=== PATIENT | female | born 1940 | race Caucasian/White ===

== ENCOUNTER 2017-04-05 07:47 | Emergency (ER) | payer MEDICARE ==
[~2017-04-05] VITALS: Ht 167.6 cm; Wt 109.3 kg
[~2017-04-05 07:47] MED LIST: ALLOPURINOL100 MG PO; BACTRIM DS TAB1 EACH PO; CILOXAN5 ML OS; COLACE100 M1 PO; COZAAR100 MG PO; ESCITALOPRAM OX10 MG PO; FAMOTIDINE20 MG PO; FLUCONAZOLE100 MG PO; FUROSEMIDE40 MG PO; HYDROCHLOROTHIA25 MG PO; JANTOVEN3 MG PO; LEVAQUIN500 MG PO; LEXAPRO10 MG PO; LOSARTAN POTAS100 MG PO; METOPROLOL SUC100 MG PO; METOPROLOL SUCC50 MG PO; NORVASC5 MG PO; PEPCID20 MG PO; POTASSIUM CHLO20 ME1 PO; PREDNISOLONE ACE5 ML OS; PREDNISONE10 MG PO; PREDNISONE20 MG PO; SENOKOT8.6 MG PO; SEREVENT DISKU50 MCG PO; SIMVASTATIN20 MG PO; TESSALON PERLE100 MG PO; VENTOLIN HFA18 GM PO; WARFARIN SODIU2.5 MG PO
[2017-04-05] MEDS ORDERED: KETOROLAC TROMETHAMINE 10 MG TAB PO ONE (08:15)
--- NOTE | 2017-04-05 09:12 | Diagnostic Imaging Report ---
PROCEDURE:HIP RIGHT 2-3 VW (+/- PELVIS) COMPARISON:Pelvis one view 10/26/2016. INDICATIONS:FALL, HIP PAIN FINDINGS: Normal mineralization. No acute fracture or dislocation. Joint spaces are within normal limits. Postoperative changes of open reduction and internal fixation of a right femoral neck fracture with intramedullary mychal and single cortical screw. No qagan tayagungin bone or hardware fracture is identified. Minimal heterotopic ossification. Degenerative changes of the lumbar spine. CONCLUSION: No acute fracture or dislocation. Postoperative changes. Dictated by: Andrey Sahu M.D. on 04/05/2017 at 9:21 Electronically approved by: Andrey Sahu M.D. on 04/05/2017 at 9:21
--- NOTE | 2017-04-05 09:16 | Diagnostic Imaging Report ---
PROCEDURE:X-RAY RIGHT WRIST, COMPLETE COMPARISON:None. INDICATIONS:FALL, WRIST BRUISING FINDINGS: There are no fractures, dislocations, lytic or blastic lesions. The bones are well-mineralized. The soft-tissues are unremarkable. CONCLUSION: No acute radiographic abnormality. Dictated by: Andrey Sahu M.D. on 04/05/2017 at 9:25 Electronically approved by: Andrey Sahu M.D. on 04/05/2017 at 9:25
[2017-04-05] MEDS ORDERED: DEXAMETHASONE 4 MG TAB PO ONE (12:00)
== END 2017-04-05 09:56 | disposition home or self-care (01) ==
LOC: ER 07:47
DX: S70.01XA Contusion of right hip, initial encounter (principal); M25.531 Pain in right wrist; W01.0XXA Fall on same level from slipping, tripping and stumbling without subsequent striking against object, initial encounter; Y92.008 Other place in unspecified non-institutional (private) residence as the place of occurrence of the external cause; I10 Essential (primary) hypertension; E11.9 Type 2 diabetes mellitus without complications; I50.9 Heart failure, unspecified; I48.91 Unspecified atrial fibrillation
CPT/HCPCS: 99283

== ENCOUNTER 2017-06-13 11:50 | Emergency (ER) | payer MEDICARE ==
[~2017-06-13] VITALS: Ht 170.2 cm; Wt 106.6 kg
--- OUTSIDE RECORDS SUMMARY | 2017-06-13 11:54 | XMS REPORT ---
Author Author [facility] Address Unknown Phone Unavailable Care Team Providers Care Veneer Marker Name Role Phone HEBERT MAGDALENO Unavailable Unavailable VICTORIANO PHILIPPE Unavailable Unavailable Problems This patient has no known problems. Allergies, Adverse Reactions, Alerts This patient has no known allergies or adverse reactions. Medications This patient has no known medications. Results Test Description Test Time Test Comments Text Results Atomic Results Result Comments WRIST COMPLETE RIGHT [place] [address] Patient Name: KELLEY GONZALEZ MR #: [id number] : 1940 Age/Sex: 76/F Req #: [id number] [facility] Physician: Ordered by: HEBERT MAGDALENO MD Report #: [id number] Location: ER Room/Bed: Procedure: [id number] DX/WRIST COMPLETE RIGHT Exam Date: 04/05/17 Exam Time: 0820 REPORT STATUS: Signed PROCEDURE: X-RAY RIGHT WRIST, COMPLETE COMPARISON: None. INDICATIONS: FALL, WRIST BRUISING FINDINGS: There are no fractures, dislocations, lytic or blastic lesions. The bones are well-mineralized. The soft-tissues are unremarkable. CONCLUSION: No acute radiographic abnormality. Dictated by: Denae Umana M.D. on 04/05/2017 at 9:25 Electronically approved by: Denae Umana M.D. on 04/05/2017 at 9:25 Dictated By : DENAE UMANA MD 4 Transcribed By: GURPREET on 04/05/17924 COPY TO: HEBERT MAGDALENO MD HIP RIGHT 2-3 VW (+/- PELVIS) [place] [address] Patient Name: KELLEY GONZALEZ MR #: [id number] : 1940 Age/Sex: 76/F Req #: [id number] Adm Physician: Ordered by: HEBERT MAGDALENO MD Report #: [id number] Location: ER Room/Bed: Procedure: [id number] DX/HIP RIGHT 2-3 VW (+/- PELVIS) Exam Date: Exam Time: REPORT STATUS: Signed PROCEDURE: HIP RIGHT 2-3 VW (+/- PELVIS) COMPARISON: Pelvis one view 10/26/2016. INDICATIONS: FALL, HIP PAIN FINDINGS: Normal mineralization. No acute fracture or dislocation. Joint spaces are within normal limits. Postoperative changes of open reduction and internal fixation of a right femoral neck fracture with intramedullary mychal and single cortical screw. No kl[place] kaah bone or hardware fracture is identified. Minimal heterotopic ossification. Degenerative changes of the lumbar spine. CONCLUSION: No acute fracture or dislocation. Postoperative changes. Dictated by: Denae Umana M.D. on 04/05/2017 at 9:21 Electronically approved by: Denae Umana M.D. on 04/05/2017 at 9:21 Dictated By: DENAE UMANA MD 0 Transcribed By: GURPREET on 04/05/17920 COPY TO: HEBERT MAGDALENO MD HIP RIGHT 2-3 VW (+/- PELVIS) [place] [id number] [place] [address] Patient Name: KELLEY GONZALEZ MR #: [id number] : 1940 Age/Sex: 76/F Req #: [id number] Adm Physician: VICTORIANO PHILIPPE MD Ordered by: TERE ALVAREZ MD Report #: [id number] Location: MED/SURG Room/Bed: [facility] Procedure: [id number] DX/HIP RIGHT 2-3 VW (+/- PELVIS ) Exam Date: Exam Time: REPORT STATUS: Signed PROCEDURE: X-RAY PELVIS, AP VIEW COMPARISON: [facility], DX, HIP RIGHT 2-3 VW (+/- PELVIS), 10/24/2016, 0:12. INDICATIONS: Hip fracture, right FINDINGS: See impression. Impression: 1. Status post ORIF of previously visualized right femoral intertrochanteric fracture, with placement of intramedullary mychal and screw. Hardware is intact, without evidence of loosening or failure. Satisfactory alignment on this single AP view. 2. Mild degenerative changes in bilateral hip joints. 3. Soft tissues are grossly unremarkable. Maureen Kurtz M.D. Dictated by: Maureen Kurtz M.D. on 10/26/2016 at 18:09 Electronically approved by: Maureen Kurtz M.D. on 2016 at 18:09 Dictated By: MAUREEN KURTZ MD 08 Transcribed By: GURPREET on 1808 COPY TO: TERE ALVAREZ MD PELVIS AP 1-[address], [place] [address] Patient Name: KELLEY GONZALEZ MR #: [id number] : 1940 Age/Sex: 76/F Req #: [id number] [facility] Physician: VICTORIANO PHILIPPE MD Ordered by: TERE ALVAREZ MD Report #: [id number] Location: MED/SURG Room/Bed: [facility] Procedure: [id number] DX/PELVIS AP 1-2 VIEWS Exam Date: 10/26/16 Exam Time: 1415 REPORT STATUS: Signed PROCEDURE: X-RAY PELVIS, AP VIEW COMPARISON: [facility], DX, HIP RIGHT 2-3 VW (+/- PELVIS), 10/24/2016, 0:12. INDICATIONS: Hip fracture, right FINDINGS: See impression. Impression: 1. Status post ORIF of previously visualized right femoral intertrochanteric fracture, with placement of intramedullary mychal and screw. Hardware is intact, without evidence of loosening or failure. Satisfactory alignment on this single AP view. 2. Mild degenerative changes in bilateral hip joints. 3. Soft tissues are grossly unremarkable. Maureen Kurtz M.D. Dictated by: Maureen Kurtz M.D. on 10/26/2016 at 18:09 Electronically approved by: Maureen Kurtz M.D. on 2016 at 18:09 Dictated By: MAUREEN KURTZ MD 08 Transcribed By: GURPREET on 1808 COPY TO: TERE ALVAREZ MD
[2017-06-13] MEDS ORDERED: ACETAMINOPHEN/CODEINE 300MG - 30MG TAB PO ONE ×2 (12:15→13:45)
--- NOTE | 2017-06-13 12:43 | Diagnostic Imaging Report ---
PROCEDURE:X-RAY RIGHT WRIST, COMPLETE COMPARISON:Right wrist radiograph 04/05/2017 INDICATIONS:FALL FINDINGS: Mildly displaced and comminuted fracture of the distal radius with intra-articular extension. Again noted small bony fragment distal to the ulna which may represent an old avulsion. Advanced degenerative changes of the first carpometacarpal joint. There are no dislocations, lytic or blastic lesions. The bones are well-mineralized. Associated soft tissue swelling. CONCLUSION: Acute mildly displaced and comminuted fracture of the distal radius. Dictated by: Edilberto Santiago M.D. on 06/13/2017 at 12:43 Electronically approved by: Edilberto Santiago M.D. on 06/13/2017 at 12:43
== END 2017-06-13 14:00 | disposition home or self-care (01) ==
LOC: ER 11:54
DX: S52.571A Other intraarticular fracture of lower end of right radius, initial encounter for closed fracture (principal); W01.0XXA Fall on same level from slipping, tripping and stumbling without subsequent striking against object, initial encounter; Y93.01 Activity, walking, marching and hiking; Y92.015 Private garage of single-family (private) house as the place of occurrence of the external cause; I10 Essential (primary) hypertension; E78.5 Hyperlipidemia, unspecified; F41.9 Anxiety disorder, unspecified; Z85.118 Personal history of other malignant neoplasm of bronchus and lung; I50.9 Heart failure, unspecified
CPT/HCPCS: 99284

== ENCOUNTER 2018-02-06 12:30 | Emergency (ER) | payer MEDICARE, OTHER ==
[~2018-02-06] VITALS: Ht 170.2 cm; Wt 106.6 kg
--- OUTSIDE RECORDS SUMMARY | 2018-02-06 12:34 | XMS REPORT ---
Author Author Jose M Moore Organization [employer] Address Unknown Phone Unavailable Care Team Providers Care Oncology Coordinator Name Role Phone Jose M Moore CP Unavailable Allergies No Known Allergies Problems Problem Type Condition Code Onset Dates Condition Status Problem 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 Active Problem Low back pain M54.5 Active Problem CABRERA (dyspnea on exertion) R06.09 Active Problem Primary osteoarthritis of both knees M17.0 Active Problem Abnormal EKG R94.31 Active Problem Patient unable to exercise Z78.9 Active Assessment Chronic diastolic CHF (congestive heart failure), NYHA class 3 I50.32 Active Problem Angina pectoris I20.9 Active Problem Lung nodule R91.1 Active Problem Other chronic pain G89.29 Active Problem Chronic diastolic CHF (congestive heart failure), NYHA class 3 I50.32 Active Problem Paroxysmal atrial fibrillation I48.0 Active Problem Type 2 diabetes mellitus without complications E11.9 Active Problem HTN (hypertension), benign I10 Active Problem Atrial fibrillation I48.91 Active Problem Venous insufficiency I87.2 Active Problem 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.893 Active Problem Chronic idiopathic gout involving toe, 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
--- OUTSIDE RECORDS SUMMARY | 2018-02-06 12:34 | XMS REPORT ---
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 Problem 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.893 Active Problem Low back pain M54.5 Active Problem Lung nodule R91.1 Active Problem Other chronic pain G89.29 Active Problem Pure hypercholesterolemia E78.00 Active Problem 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 M05.741 Active Problem CABRERA (dyspnea on exertion) R06.09 Active Problem 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 Active Assessment Atrial fibrillation I48.91 Active Problem Type 2 diabetes mellitus without complications E11.9 Active Problem Abnormal EKG R94.31 Active Problem 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
--- OUTSIDE RECORDS SUMMARY | 2018-02-06 12:34 | XMS REPORT ---
Author Author Jose M Moore Organization [employer] Address Unknown Phone Unavailable Care Team Providers Care Grader Operator Name Role Phone Jose M Moore CP Unavailable Allergies, Adverse Reactions, Alerts Substance Reaction Event Type Clindamycin 300 mg 10d Hives Drug Allergy Morphine Sulfate Hyperactive Drug Allergy Problems Problem Type Condition Code Onset Dates Condition Status Assessment Type 2 diabetes mellitus without complications E11.9 Active Assessment Atrial fibrillation I48.91 Active Assessment HTN (hypertension), benign I10 Active Problem Venous insufficiency I87.2 Active Problem HTN (hypertension), benign I10 Active Problem Atrial fibrillation I48.91 Active Problem 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 Problem snf (current) use of insulin Z79.4 Active Problem Abnormal EKG R94.31 Active Problem Type 2 diabetes mellitus without complications E11.9 Active Assessment snf (current) use of insulin Z79.4 Active Assessment 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 Assessment 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 Active Assessment Abnormal EKG R94.31 Active Medications Medication Code System Code Instructions Start Date End Date Status Dosage Amlodipine Besylate [facility] [address]-52 5 MG PO daily Active 1 tablet Allopurinol [facility] [address]-14 100 mg Orally Twice a day Active 1 tablet Metformin HCl [facility] [address]-91 500 mg Orally once a day Active 1/2 tablet Albuterol Sulfate [facility] [address]-75 Inhalation as needed (prn) Active 3 ml Warfarin Sodium [facility] [address]-24 2.5 MG Orally daily Active 1 tablet Potassium Chloride [place] ER [facility] [address]-23 10 MEQ Orally Twice a day Active 2 tablets Escitalopram Oxalate [facility] [address]-39 10 mg Orally Once a day Active 1 tablet Simvastatin [facility] [address]-71 20 mg Orally Once a day Active 1 tablet in the evening Losartan Potassium-HCTZ [facility] [address]-78 100-25 MG Orally Once a day Active 1 tablet Metoprolol Succinate ER [facility] 25080389554 50MG Orally Twice a day Active 1 tablet Furosemide [facility] [address]-02 20 mg Orally Once a day Active 1 tablet Vital Signs Date/Time: June 07, 2015 BMI 40.09 Index Weight 256 lbs Height 67 in Temperature 96.9 F Cardiac Monitoring Heart Rate 95 /min Blood Pressure Diastolic 86 mm Hg Blood Pressure Systolic 110 mm Hg Results No Known Results Summary Purpose [employer] Submission
--- OUTSIDE RECORDS SUMMARY | 2018-02-06 12:34 | XMS REPORT ---
Author Author Jose M Moore Organization [employer] Address Unknown Phone Unavailable Care Team Providers Care City Plant Supervisor Name Role Phone Jose M Moore CP Unavailable Allergies, Adverse Reactions, Alerts Substance Reaction Event Type Clindamycin 300 mg 10d Hives Drug Allergy Morphine Sulfate Hyperactive Drug Allergy Problems Problem Type Condition Code Onset Dates Condition Status Problem HTN (hypertension), benign I10 Active Assessment Low back pain M54.5 Active Problem Venous insufficiency I87.2 Active Assessment Pure hypercholesterolemia E78.00 Active Problem Atrial fibrillation I48.91 Active Problem Chronic idiopathic gout involving toe, 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 Problem 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.893 Active Problem Low back pain M54.5 Active Problem Lung nodule R91.1 Active Assessment Type 2 diabetes mellitus without complications E11.9 Active Assessment Lung nodule R91.1 Active Problem Other chronic pain G89.29 Active Assessment Abnormal EKG R94.31 Active Problem Pure hypercholesterolemia E78.00 Active Problem 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 M05.741 Active Problem CABRERA (dyspnea on exertion) R06.09 Active Problem 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 Active Assessment HTN (hypertension), benign I10 Active Assessment Atrial fibrillation I48.91 Active Assessment 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 Active Assessment CABRERA (dyspnea on exertion) R06.09 Active Problem Type 2 diabetes mellitus without complications E11.9 Active Problem Abnormal EKG R94.31 Active Problem 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 [address]-49 2.5 MG Orally daily Active [address] [facility] [address]-78 2.5 MG Orally Weekly Active 4 tablets Metoprolol Succinate ER [facility] 84723751944 50MG Orally Twice a day Active [address] [facility] [address]-11 100 mg Orally Once a day Active 1 tablet Escitalopram Oxalate [facility] [address]-25 10 mg Orally Once a day Active 1 tablet Albuterol Sulfate [facility] [address]-85 Inhalation as needed (prn) Active [address] [facility] [address]-23 20 mg Orally Once a day Active 1 tablet in the evening Furosemide [facility] [address]-27 40 MG Orally Once a day Active 1 tablet Potassium Chloride [place] ER [facility] [address]-11 10 MEQ Orally Twice a day Active 2 tablets Metformin HCl [facility] [address]-15 500 mg Orally once a day Active 1/[address] [facility] [address]-52 5 MG Orally QOD Active 1 tablet Losartan Potassium-HCTZ [facility] [address]-03 100-25 MG Orally Once a day Active 1/2 half tablet Vital Signs Date/Time: Mar 27, 2016 BMI 39.15 Index Weight 250 lbs Height 67 in Temperature 97.2 F Cardiac Monitoring Heart Rate 80 /min Blood Pressure Diastolic 72 mm Hg Blood Pressure Systolic 122 mm Hg Results No Known Results Summary Purpose [employer] Submission
--- OUTSIDE RECORDS SUMMARY | 2018-02-06 12:34 | XMS REPORT ---
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 Assessment 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 Active Assessment Abnormal EKG R94.31 Active Medications Medication Code System Code Instructions Start Date End Date Status Dosage Amlodipine Besylate [facility] [address]-46 5 MG PO daily Active 1 tablet Warfarin Sodium [facility] [address]-43 2.5 MG Orally daily Active 1 tablet Furosemide [facility] [address]-29 40 MG Orally daily Active 1 tablet Metoprolol Succinate ER [facility] 63795436212 50MG Orally Twice a day Active 1 tablet Escitalopram Oxalate [facility] [address]-23 10 mg Orally Once a day Active 1 tablet Simvastatin [facility] [address]-68 20 mg Orally Once a day Active 1 tablet in the evening Allopurinol [facility] [address]-53 100 mg Orally Once a day Active 1 tablet Lexapro [facility] [address]-38 5 MG/5ML Orally Once a day Active 10 ml Potassium Chloride [place] ER [facility] [address]-96 10 MEQ Orally Twice a day Active 2 tablets Losartan Potassium-HCTZ [facility] [address]-26 100-25 MG Orally Once a day Active 1 tablet Albuterol Sulfate [facility] [address]-15 Inhalation as needed (prn) Active 3 ml Metformin HCl [facility] [address]-04 500 mg Orally once a day Active 1/2 tablet Vital Signs Date/Time: August 09, 2015 BMI 40.09 Index Weight 256 lbs Height 67 in Temperature 97.6 F Cardiac Monitoring Heart Rate 95 /min Blood Pressure Diastolic 70 mm Hg Blood Pressure Systolic 118 mm Hg Results No Known Results Summary Purpose [employer] Submission
--- OUTSIDE RECORDS SUMMARY | 2018-02-06 12:34 | XMS REPORT | Continuity of Care Document ---
Author Author [facility] Interface Address Unknown Phone Unavailable Problems Problem Status Onset Date Classification Date Reported Comments Source Varicose veins of lower extremities with other complications Active Problem 01/10/2018 Jose M Moore Lung nodule Active Problem 01/10/2018 Jose M Moore CABRERA Active Problem 01/10/2018 Jose M Moore Patient unable to exercise Active Problem 01/10/2018 Jose M Moore custodial use of insulin Active Problem 01/10/2018 Jose M Moore Chronic diastolic CHF , NYHA class 3 Active Diagnosis 01/10/2018 Jose M Moore Pure hypercholesterolemia Active Problem 01/10/2018 Jose M Moore Primary osteoarthritis of both knees Active Problem 01/10/2018 Jose M Moore Other chronic pain Active Problem 01/10/2018 Jose M Moore Low back pain Active Problem 01/10/2018 Jose M Moore Angina pectoris Active Problem 01/10/2018 Jose M Moore Paroxysmal atrial fibrillation Active Problem 01/10/2018 Jose M Moore Abnormal EKG Active Problem 01/10/2018 Jose M Moore HTN , benign Active Problem 01/10/2018 Jose M Moore Other specified arthropathy of pelvic region Active Problem 01/10/2018 Jose M Moore Type 2 diabetes mellitus without complications Active Problem 01/10/2018 Jose M Moore Varicose veins of bilateral lower extremities with other complications Active Problem 01/10/2018 Jose M Moore Chronic idiopathic gout involving toe, unspecified laterality Active Problem 01/10/2018 Jose M Moore Venous insufficiency Active Problem 01/10/2018 Jose M Moore 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 Active Problem 01/10/2018 Jose M Moore Atrial fibrillation Active Problem 01/10/2018 Jose M Moore Body Mass Index 40.0-44.9, adult Active Problem 03/04/2014 Jose M Moore Diabetes mellitus without mention of complication, type II or unspecified type, not stated as uncontrolled Active Problem 03/04/2014 Jose M Moore Unspecified arthropathy, pelvic region and thigh Active Problem 03/04/2014 Jose M Moore Sinus Bradycardia Active Problem 03/04/2014 Jose M Moore Aortic valve disorders Active Problem 03/04/2014 Jose M Moore Abnormal EKG Active Problem 03/04/2014 Jose M Moore Atrial fibrillation Active Problem 03/04/2014 Jose M Moore HTN, Benign Active Problem 03/04/2014 Jose M Moore Medications Medication Details Route Status Patient Instructions Ordering Provider Order Date Source Potassium Chloride [place] ER TAKE 2 TABLETS TWICE DAILY by mouth Active 10 MEQ by mouth Twice a day [facility] 01/23/2018 Jose M Moore Warfarin Sodium 1 tablet Orally Active 2.5 MG Orally daily [facility] 04/29/2016 Jose M Moore Potassium Chloride 1 capsule Orally Active 10 MEQ Orally TID [facility] 04/01/2014 Jose M Mooer Potassium Chloride 2 capsule Orally Active 10 MEQ Orally Twice a day [facility] 03/09/2014 Jose M Moore Simvastatin 1 tablet in the evening Orally Active 20 mg Orally Once a day Rykatarzyna Moore Furosemide TAKE 1 TABLET EVERY DAY by mouth Active 40 mg by mouth twice a day (bid) Rykatarzyna Moore Potassium Chloride [place] ER TAKE 2 TABLETS TWICE DAILY NA Active 10 MEQ Rykatarzyna Moore Amlodipine Besylate 1 tablet PO Active 5 [facility] Allopurinol 1 tablet Orally Active 100 mg Orally Once a day Rykatarzyna Moore Metformin HCl 1/2 tablet Orally Active 500 mg Orally once a day Rykatarzyna Moore Albuterol Sulfate 3 ml Inhalation Active Inhalation as needed (prn) Rykatarzyna Moore Warfarin Sodium 1 tablet Orally Active 2.5 MG Orally daily [facility] Jose M Moore Potassium Chloride [place] ER 2 tablets Orally Active 10 MEQ Orally Twice a day Rykatarzyna Moore Escitalopram Oxalate 1 tablet Orally Active 10 mg Orally Once a day Rykatarzyna Moore Losartan Potassium-HCTZ 1/2 half tablet Orally Active 100-25 MG Orally Once a day Rykatarzyna Moore Metoprolol Succinate ER 1 tablet Orally Active 50MG Orally Twice a day Ry Milly O Oscar Furosemide 1 tablet Orally Active 20 MG Orally Once a day Ry Milly O Oscar PredniSONE 1 tablet Orally Active 5 MG Orally QOD Ry Milly O Oscar Furosemide 1 tablet Orally Active 40 MG Orally Once a day Ry Milly O Oscar Lexapro 10 ml Orally Active 5 MG/5ML Orally Once a day Ry Milly O Oscar Metoprolol Succinate ER 1 tablet PO Active 100 MG PO daily Ry Milly O Oscar Allopurinol 1 tablet Orally Active 100 mg Orally Once a day Ry Milly O Oscar Methotrexate 4 tablets Orally Active 2.5 MG Orally Weekly Ry Milly O Oscar Warfarin Sodium 1 tablet Orally Active 2.5 MG Orally daily Ry Milly O Oscar Albuterol Sulfate 3 ml Inhalation Active Inhalation as needed (prn[facility] Metformin HCl 1/2 tablet Orally Active 500 mg Orally once a day Ry Milly O Oscar Pepcid 1 tablet at bedtime Orally Active 20 MG Orally Once a day Ry Milly O Oscar Escitalopram Oxalate 1 tablet Orally Active 10 mg Orally Once a day yR Milly Oscar PredniSONE 1 tablet Orally Active 5 MG Orally QOD Ry Milly O Oscar Simvastatin 1 tablet in the evening Orally Active 20 mg Orally Once a day Ry Milly O Oscar Pepcid 1 tablet at bedtime Orally Active 20 MG Orally Once a day [facility] Milly O Oscar Fluconazole 1 tablet Orally Active 100 MG Orally daily Ry Milly O Oscar Ciprofloxacin 5 ml Orally Active 500 MG/5ML (10%) Orally Twice a day Ry Milly O Oscar Methotrexate 4 tablets Orally Active 2.5 MG Orally Weekly Ry Milly O Oscar Metoprolol Succinate ER 1 tablet PO Active 100 MG PO daily Ry Milly O Oscar Warfarin Sodium 1 tablet Orally Active 2.5MG Orally daily Ry Milly O Oscar Potassium Chloride 1 capsule Orally Active 10 Orally TID [facility] Milly O Rykatarzyna Potassium Chloride [place] ER 2 tablets Orally Active 10 MEQ Orally Twice a day [facility] Brisa Oscar Losartan Potassium-HCTZ 1 tablet Orally Active 100-25 MG Orally Once a day [facility] Brisa Oscar Metoprolol Succinate ER 1 tablet Orally Active 50 MG Orally Twice a day [facility] Brisa Oscar Metoprolol Succinate as directed Orally Active 50 MG Orally Once PM [facility] Lede[facility] Oscar Coumadin 1 tablet Orally Active 3 MG Orally daily [facility] Brisa Oscar Metoprolol Succinate ER 1/2 tablet Orally Active 50 MG Orally Once AM [facility] Brisa Razaelvira Potassium Chloride 1 capsule Orally Active 10 MEQ Orally Four times a day [facility] Brisa Razaelvira Toprol XL 1 tablet Orally Active 50 mg Orally 25mg in AM, 50 mg in PM [facility] Brisa Oscar Warfarin Sodium 1 tablet Orally Active 3 MG Orally Once PM [facility] Brisa Oscar Allergies, Adverse Reactions, Alerts Substance Category Reaction Severity Reaction type Status Date Reported Comments Source Clindamycin 300 mg 10d Adverse Reaction Hives Adverse Reaction Active 12/04/2016 [facility] Brisa Moore Morphine Sulfate Adverse Reaction Hyperactive Adverse Reaction Active 12/04/2016 [facility] Brisa Moore Immunizations Immunization Date Given Site Status Last Updated Comments Source Results Order Name Results Value Reference Range Date Interpretation Comments Source Vital Signs Vital Sign Value Date Comments Source Weight 232 12/04/2016 Jose M Jaimekatarzyna Height 67 12/04/2016 Jose M Moore Temperature Oral (F) 94.7 F 12/04/2016 Jose M Moore Heart Rate 86 12/04/2016 Jose M Moore Diastolic (mm Hg) 78 12/04/2016 Jose M Moore Systolic (mm Hg) 120 12/04/2016 Jose M Brisa Ryoukatarzyna [facility] 232 [facility] Height 67 10/17/2016 Jose M Moore Temperature Oral (F) 97.3 F 10/17/2016 Jose M Moore Heart Rate 86 10/17/2016 Jose M Moore Diastolic (mm Hg) 80 10/17/2016 Jose M Moore Systolic (mm Hg) 142 10/17/2016 Jose M Brisa Moore Weight 239 [facility]09[facility] 67 07/09/2016 Mohamed O Jeroudi Temperature Oral (F) 97.5 F 07/09/2016 Mohamed O Jeroudi Heart Rate 60 07/09/2016 Mohamed O Jeroudi Diastolic (mm Hg) 76 07/09/2016 Mohamed O Jeroudi Systolic (mm Hg) 128 07/09/2016 Mohamed O Jeroudi Weight 247 06/26/2016 Mohamed O Jeroudi Height 67 06/26/2016 Mohamed O Jeroudi Temperature Oral (F) 97.1 F 06/26/2016 Mohamed O Jeroudi Heart Rate 57 06/26/2016 Mohamed O Jeroudi Diastolic (mm Hg) 70 06/26/2016 Mohamed O Jeroudi Systolic (mm Hg) 118 06/26/2016 Mohamed O Jeroudi Weight 250 03/27/2016 Mohamed O Jeroudi Height 67 03/27/2016 Mohamed O Jeroudi Temperature Oral (F) 97.2 F 03/27/2016 Mohamed O Jeroudi Heart Rate 80 03/27/2016 Mohamed O Jeroudi Diastolic (mm Hg) 72 03/27/2016 Mohamed O Jeroudi Systolic (mm Hg) 122 03/27/2016 Mohamed O Jeroudi Weight 252 03/06/2016 Mohamed O Jeroudi Height 67 03/06/2016 Mohamed O Jeroudi Temperature Oral (F) 97.1 F 03/06/2016 Mohamed O Jeroudi Heart Rate 90 03/06/2016 Mohamed O Jeroudi Diastolic (mm Hg) 64 03/06/2016 Mohamed O Jeroudi Systolic (mm Hg) 102 03/06/2016 Mohamed O Jeroudi Weight 254 02/20/2016 Mohamed O Jeroudi Height 67 02/20/2016 Mohamed O Jeroudi Temperature Oral (F) 97.6 F 02/20/2016 Mohamed O Jeroudi Heart Rate 100 02/20/2016 Mohamed O Jeroudi Diastolic (mm Hg) 86 02/20/2016 Mohamed O Jeroudi Systolic (mm Hg) 140 02/20/2016 Mohamed O Jeroudi Weight 260 12/15/2015 Mohamed O Jeroudi Height 67 12/15/2015 Mohamed O Jeroudi Temperature Oral (F) 98.1 F 12/15/2015 Mohamed O Jeroudi Heart Rate 101 12/15/2015 Mohamed O Jeroudi Diastolic (mm Hg) 80 12/15/2015 Mohamed O Jeroudi Systolic (mm Hg) 110 12/15/2015 Mohamed O Jeroudi Weight 256 08/09/2015 Mohamed O Jeroudi Height 67 08/09/2015 Mohamed O Jeroudi Temperature Oral (F) 97.6 F 08/09/2015 Mohamed O Jeroudi Heart Rate 95 08/09/2015 Mohamed O Jeroudi Diastolic (mm Hg) 70 08/09/2015 Mohamed O Jeroudi Systolic (mm Hg) 118 08/09/2015 Mohamed O Jeroudi Weight 256 06/07/2015 Mohamed O Jeroudi Height 67 06/07/2015 Mohamed O Jeroudi Temperature Oral (F) 96.9 F 06/07/2015 Mohamed O Jeroudi Heart Rate 95 06/07/2015 Mohamed O Jeroudi Diastolic (mm Hg) 86 06/07/2015 Mohamed O Jeroudi Systolic (mm Hg) 110 06/07/2015 Mohamed O Jeroudi Weight 249 06/09/2013 Mohamed O Jeroudi Temperature Oral (F) 97.9 F 06/09/2013 Mohamed O Jeroudi Heart Rate 54 06/09/2013 Mohamed O Jeroudi Diastolic (mm Hg) 72 06/09/2013 Mohamed O Jeroudi Systolic (mm Hg) 124 06/09/2013 Jose M Jaimedi Encounters Location Location Details Encounter Type Encounter Number Reason For Visit Attending Provider ADM Date DC Date Status Source MD VERONIKA Valdez Unknown [id number] 06/09/2013 06/09/2013 MD VERONIKA Mcmahon Unknown [id number] 06/09/2013 06/09/2013 MD VERONIKA Mcmahon Unknown [id number] 06/09/2013 06/09/2013 MD VERONIKA Mcmahon Unknown [id number] 06/09/2013 06/09/2013 MD VERONIKA Mcmahon Unknown [id number] 06/09/2013 06/09/2013 MD VERONIKA Mcmahon Unknown [id number] 06/09/2013 06/09/2013 Jose M Moore MD PA Unknown [id number] 06/09/2013 06/09/2013 MD VERONIKA Mcmahon Unknown [id number] 06/09/2013 06/09/2013 Jose M Moore MD PA [id number] 09/08/2013 09/08/2013 Jose M Moore MD PA 3 [id number] 09/08/2013 09/08/2013 MD VERONIKA Mcmahon 3 [id number] 09/08/2013 09/08/2013 MD VERONIKA Mcmahon Unknown [id number] 09/10/2013 09/10/2013 MD VERONIKA Mcmahon Unknown [id number] 09/10/2013 09/10/2013 Jose M Moore MD PA Unknown [id number] 09/10/2013 09/10/2013 Jose M Moore MD PA Unknown [id number] 09/10/2013 09/10/2013 Jose M Moore MD PA Unknown [id number] 09/10/2013 09/10/2013 Jose M Moore MD PA Unknown [id number] 09/10/2013 09/10/2013 Jose M Moore MD PA Unknown [id number] 09/10/2013 09/10/2013 Jose M Moore MD PA Unknown [id number] 10/06/2013 10/06/2013 Jose M Moore MD PA Unknown [id number] 10/06/2013 10/06/2013 Jose M Moore MD PA Unknown [id number] 10/06/2013 10/06/2013 Jose M Moore MD PA Unknown [id number] 10/06/2013 10/06/2013 Jose M Moore MD PA Unknown [id number] 10/06/2013 10/06/2013 Jose M Moore MD PA Unknown [id number] 10/06/2013 10/06/2013 Jose M Moore MD PA Unknown [id number] 11/16/2013 11/16/2013 Jose M Moore MD PA Unknown [id number] 11/16/2013 11/16/2013 Jose M Moore MD PA Unknown [id number] 11/16/2013 11/16/2013 Jose M Moore MD PA Unknown [id number] 11/16/2013 11/16/2013 Jose M Moore MD PA Unknown [id number] 11/16/2013 11/16/2013 Jose M Moore MD PA Unknown [id number] 11/24/2013 11/24/2013 Jose M Moore MD PA Unknown [id number] 11/24/2013 11/24/2013 Jose M Moore MD PA Unknown [id number] 11/24/2013 11/24/2013 Jose M Moore MD PA Unknown [id number] 03/02/2014 03/02/2014 Jose M Moore MD PA Unknown [id number] 03/02/2014 03/02/2014 Jose M Moore MD PA Unknown [id number] 03/02/2014 03/02/2014 Jose M Moore MD PA Unknown [id number] 03/02/2014 03/02/2014 Jose M Moore MD PA Unknown [id number] 03/16/2014 03/16/2014 Jose M Moore MD PA Unknown [id number] 03/16/2014 03/16/2014 Jose M Moore MD PA Unknown [id number] 03/16/2014 03/16/2014 Jose M Moore MD PA Unknown [id number] 04/05/2014 04/05/2014 Jose M Moore MD PA Unknown [id number] 04/05/2014 04/05/2014 Jose M Moore MD PA Unknown [id number] 04/05/2014 04/05/2014 Jose M Moore MD PA Unknown [id number] 04/06/2014 04/06/2014 Jose M Moore MD PA Unknown [id number] 04/06/2014 04/06/2014 Jose M Moore MD PA Unknown [id number] 04/06/2014 04/06/2014 Jose M Moore MD PA Unknown [id number] 06/14/2014 06/14/2014 Jose M Moore MD PA Unknown [id number] 06/14/2014 06/14/2014 Jose M Moore MD PA Unknown [id number] 06/14/2014 06/14/2014 Jose M Moore MD PA Unknown [id number] 11/29/2014 11/29/2014 Jose M Moore MD PA Unknown [id number] 11/29/2014 11/29/2014 Jose M Moore MD PA Unknown [id number] 11/29/2014 11/29/2014 Jose M Moore MD PA Unknown [id number] 01/05/2016 01/05/2016 Jose M Moore MD PA Unknown [id number] 01/05/2016 01/05/2016 Jose M Moore MD PA Unknown [id number] 01/05/2016 01/05/2016 Jose M Moore MD PA Unknown [id number] 01/31/2016 01/31/2016 Jose M Moore MD PA Unknown [id number] 01/31/2016 01/31/2016 Jose M Moore MD PA Unknown [id number] 01/31/2016 01/31/2016 Jose M Moore MD PA Unknown [id number] 01/31/2016 01/31/2016 Jose M Moore Procedures Procedure Code Date Perfomer Comments Source
--- OUTSIDE RECORDS SUMMARY | 2018-02-06 12:34 | XMS REPORT ---
Author Author Jose M Moore Organization [employer] Address Unknown Phone Unavailable Care Team Providers Care Teacher Counselor Name Role Phone Jose M Moore CP Unavailable Allergies, Adverse Reactions, Alerts Substance Reaction Event Type Clindamycin 300 mg 10d Hives Drug Allergy Morphine Sulfate Hyperactive Drug Allergy Problems Problem Type Condition Code Onset Dates Condition Status Problem Abnormal EKG R94.31 Active Problem Venous insufficiency I87.2 Active Problem HTN (hypertension), benign I10 Active Problem 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 Active Assessment Pure hypercholesterolemia E78.00 Active Problem Pure hypercholesterolemia E78.00 Active Assessment 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 M05.741 Active Assessment Chronic idiopathic gout involving toe, 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 Problem CABRERA (dyspnea on exertion) R06.09 Active Problem 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.893 Active Problem Atrial fibrillation I48.91 Active Problem 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 M05.741 Active Problem Chronic idiopathic gout involving toe, 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 Assessment Type 2 diabetes mellitus without complications E11.9 Active Assessment 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 Active Assessment longterm (current) use of insulin Z79.4 Active Assessment Abnormal EKG R94.31 Active Assessment Atrial fibrillation I48.91 Active Problem longterm (current) use of insulin Z79.4 Active Assessment CABRERA (dyspnea on exertion) R06.09 Active Problem 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 Assessment HTN (hypertension), benign I10 Active Problem Type 2 diabetes mellitus without complications E11.9 Active Medications Medication Code System Code Instructions Start Date End Date Status Dosage Metoprolol Succinate ER [facility] 55251620422 50MG Orally Twice a day Active 1 tablet Losartan Potassium-HCTZ [facility] [address]-57 100-25 MG Orally Once a day Active 1 tablet Escitalopram Oxalate [facility] [address]-83 10 mg Orally Once a day Active 1 tablet Albuterol Sulfate [facility] [address]-29 Inhalation as needed (prn) Active 3 ml Simvastatin [facility] [address]-29 20 mg Orally Once a day Active 1 tablet in the evening Metformin HCl [facility] [address]-50 500 mg Orally once a day Active 1/2 tablet Furosemide [facility] [address]-92 20 MG Orally Once a day Active 1 tablet PredniSONE [facility] [address]-58 5 MG Orally Once a day Active 1 tablet Allopurinol [facility] [address]-47 100 mg Orally Once a day Active 1 tablet Potassium Chloride [place] ER [facility] [address]-43 10 MEQ Orally Twice a day Active 2 tablets Warfarin Sodium [facility] [address]-57 2.5 MG Orally daily except Saturday Active 1 tablet Methotrexate [facility] [address]-69 2.5 MG Orally Active not defined Vital Signs Date/Time: Feb 20, 2016 BMI 39.78 Index Weight 254 lbs Height 67 in Temperature 97.6 F Cardiac Monitoring Heart Rate 100 /min Blood Pressure Diastolic 86 mm Hg Blood Pressure Systolic 140 mm Hg Results No Known Results Summary Purpose [employer] Submission
--- OUTSIDE RECORDS SUMMARY | 2018-02-06 12:34 | XMS REPORT ---
Author Author Jose M Moore Organization [employer] Address Unknown Phone Unavailable Care Team Providers Care Hog Raiser Name Role Phone Jose M Moore CP Unavailable Allergies No Known Allergies Problems Problem Type Condition Code Onset Dates Condition Status Problem 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 Active Problem Lung nodule R91.1 Active Problem CABRERA (dyspnea on exertion) R06.09 Active Problem Patient unable to exercise Z78.9 Active Problem [facility] (current) use of insulin Z79.4 Active Problem Chronic diastolic CHF (congestive heart failure), NYHA class 3 I50.32 Active Assessment Chronic diastolic CHF (congestive heart failure), NYHA class 3 I50.32 Active Assessment Pure hypercholesterolemia E78.00 Active Problem Primary osteoarthritis of both knees M17.0 Active Problem Other chronic pain G89.29 Active Problem Low back pain M54.5 Active Problem Angina pectoris I20.9 Active Problem Paroxysmal atrial fibrillation I48.0 Active Problem Abnormal EKG R94.31 Active Problem HTN (hypertension), benign I10 Active Problem 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 Problem Type 2 diabetes mellitus without complications E11.9 Active Problem 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.893 Active Problem Chronic idiopathic gout involving toe, 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 Problem Venous insufficiency I87.2 Active Problem 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
--- OUTSIDE RECORDS SUMMARY | 2018-02-06 12:34 | XMS REPORT ---
Author Author Julianna Moore Organization [employer] Address Unknown Phone Unavailable Care Team Providers Care Bellman Driver Name Role Phone Julianna Moore Unavailable Allergies, Adverse Reactions, Alerts Substance Reaction Event Type Clindamycin 300 mg 10d Hives Drug Allergy Morphine Sulfate Hyperactive Drug Allergy Problems Problem Type Condition Code Onset Dates Condition Status Assessment Low back pain M54.5 Active Problem Venous insufficiency I87.2 Active Assessment Pure hypercholesterolemia E78.00 Active Problem Atrial fibrillation I48.91 Active Assessment Abnormal EKG R94.31 Active Problem 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.893 Active Problem 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 M05.741 Active Problem Chronic idiopathic gout involving toe, 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 Problem Other chronic pain G89.29 Active Problem Low back pain M54.5 Active Assessment Type 2 diabetes mellitus without complications E11.9 Active Assessment 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 Active Problem Paroxysmal atrial fibrillation I48.0 Active Assessment Lung nodule R91.1 Active Problem 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 Active Problem Pure hypercholesterolemia E78.00 Active Problem Lung nodule R91.1 Active Problem CABRERA (dyspnea on exertion) R06.09 Active Assessment Paroxysmal atrial fibrillation I48.0 Active Problem group home (current) use of insulin Z79.4 Active Assessment CABRERA (dyspnea on exertion) R06.09 Active Assessment HTN (hypertension), benign I10 Active Problem Abnormal EKG R94.31 Active Problem HTN (hypertension), benign I10 Active Problem 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 Problem Type 2 diabetes mellitus without complications E11.9 Active Medications Medication Code System Code Instructions Start Date End Date Status Dosage Metformin HCl [facility] [address]-12 500 mg Orally once a day Active 1/2 tablet Metoprolol Succinate ER [facility] 87583705706 50MG Orally Twice a day Active 1 tablet Escitalopram Oxalate [facility] [address]-88 10 mg Orally Once a day Active 1 tablet Potassium Chloride [place] [facility] 78590438306 10 MEQ Active TAKE 2 TABLETS TWICE DAILY Albuterol Sulfate [facility] [address]-68 Inhalation as needed (prn) Active 3 ml Simvastatin [facility] [address]-18 20 mg Orally Once a day Active 1 tablet in the evening Metoprolol Succinate ER [facility] [address]-30 100 MG PO daily Active 1 tablet PredniSONE [facility] [address]-55 5 MG Orally QOD Active 1 tablet Allopurinol [facility] [address]-77 100 mg Orally Once a day Active 1 tablet Furosemide [facility] 76585843597 40 MG Active TAKE 1 TABLET EVERY DAY Methotrexate [facility] [address]-11 2.5 MG Orally Weekly Active 4 tablets Warfarin Sodium [facility] [address]-44 2.5 MG Orally daily Apr 29, 2016 Active 1 tablet Vital Signs Date/Time: June 26, 2016 BMI 38.68 Index Weight 247 lbs Height 67 in Temperature 97.1 F Cardiac Monitoring Heart Rate 57 /min Blood Pressure Diastolic 70 mm Hg Blood Pressure Systolic 118 mm Hg Results No Known Results Summary Purpose [employer] Submission
--- OUTSIDE RECORDS SUMMARY | 2018-02-06 12:34 | XMS REPORT ---
Author Author Jose M Moore Organization [employer] Address Unknown Phone Unavailable Care Team Providers Care Type Proof Reproducer Name Role Phone Jose M Moore CP Unavailable Allergies, Adverse Reactions, Alerts Substance Reaction Event Type Clindamycin 300 mg 10d Hives Drug Allergy Morphine Sulfate Hyperactive Drug Allergy Problems Problem Type Condition Code Onset Dates Condition Status Assessment Primary osteoarthritis of both knees M17.0 Active Assessment Angina pectoris I20.9 Active Assessment Low back pain M54.5 Active Assessment Patient unable to exercise Z78.9 Active Assessment Pure hypercholesterolemia E78.00 Active Assessment Lung nodule R91.1 Active Assessment 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 Active Assessment Type 2 diabetes mellitus without complications E11.9 Active Assessment Abnormal EKG R94.31 Active Problem 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 M05.741 Active Assessment Paroxysmal atrial fibrillation I48.0 Active Problem Pure hypercholesterolemia E78.00 Active Assessment HTN (hypertension), benign I10 Active Problem 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 Active Problem Lung nodule R91.1 Active Problem CABRERA (dyspnea on exertion) R06.09 Active Problem Patient unable to exercise Z78.9 Active Problem Chronic diastolic CHF (congestive heart failure), NYHA class 3 I50.32 Active Problem 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.4 Active Assessment Chronic diastolic CHF (congestive heart failure), NYHA class 3 I50.32 Active Problem Primary osteoarthritis of both knees M17.0 Active Assessment CABRERA (dyspnea on exertion) R06.09 Active Problem Other chronic pain G89.29 Active [...] Active Problem Venous insufficiency I87.2 Active Problem Atrial fibrillation I48.91 Active Medications Medication Code System Code Instructions Start Date End Date Status Dosage Simvastatin [facility] [address]-16 20 mg Orally Once a day Active 1 tablet in the evening Allopurinol [facility] [address]-60 100 mg Orally Once a day Active 1 tablet Metformin HCl [facility] [address]-00 500 mg Orally once a day Active 1/2 tablet Pepcid [facility] [address]-97 20 MG Orally Once a day Active 1 tablet at bedtime Albuterol Sulfate [facility] [address]-00 Inhalation as needed (prn) Active 3 ml PredniSONE [facility] [address]-02 5 MG Orally QOD Active 1 tablet Escitalopram Oxalate [facility] [address]-71 10 mg Orally Once a day Active 1 tablet Fluconazole [facility] [address]-13 100 MG Orally daily Active 1 tablet Ciprofloxacin [facility] [address]-84 500 MG/5ML (10%) Orally Twice a day Active 5 ml Furosemide [facility] 16847113742 40 MG Active TAKE 1 TABLET EVERY DAY Methotrexate [facility] [address]-00 2.5 MG Orally Weekly Active 4 tablets Metoprolol Succinate ER [facility] [address]-13 100 MG PO daily Active 1 tablet Warfarin Sodium [facility] [address]-14 2.5 MG Orally daily Active 1 tablet Potassium Chloride [place] [facility] 17052059179 10 MEQ Active TAKE 2 TABLETS TWICE DAILY Vital Signs Date/Time: July 09, 2016 BMI 37.43 Index Weight 239 lbs Height 67 in Temperature 97.5 F Cardiac Monitoring Heart Rate 60 /min Blood Pressure Diastolic 76 mm Hg Blood Pressure Systolic 128 mm Hg Results No Known Results Summary Purpose [employer]Works Submission
--- OUTSIDE RECORDS SUMMARY | 2018-02-06 12:34 | XMS REPORT ---
Author Author Julianna Moore Organization [employer] Address Unknown Phone Unavailable Care Team Providers Care Damage Prevention Coordinator Name Role Phone Julianna Moore Unavailable Allergies, Adverse Reactions, Alerts Substance Reaction Event Type Clindamycin 300 mg 10d Hives Drug Allergy Morphine Sulfate Hyperactive Drug Allergy Problems Problem Type Condition Code Onset Dates Condition Status Problem Type 2 diabetes mellitus without complications E11.9 Active Problem HTN (hypertension), benign I10 Active Problem Abnormal EKG R94.31 Active Problem Pure hypercholesterolemia E78.00 Active Assessment Chronic idiopathic gout involving toe, 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 Problem 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 M05.741 Active Problem 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 Active Problem Atrial fibrillation I48.91 Active Problem Venous insufficiency I87.2 Active Problem Chronic idiopathic gout involving toe, 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 Problem 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.893 Active Assessment [facility] (current) use of insulin Z79.4 Active Assessment 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 Active Assessment 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 M05.741 Active Assessment Pure hypercholesterolemia E78.00 Active Assessment HTN (hypertension), benign I10 Active Assessment Atrial fibrillation I48.91 Active Assessment Abnormal EKG R94.31 Active Problem [facility] (current) use of insulin Z79.4 Active Assessment Type 2 diabetes mellitus without complications E11.9 Active Problem 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 Medications Medication Code System Code Instructions Start Date End Date Status Dosage Metoprolol Succinate ER [facility] 92095863890 50MG Orally Twice a day Active 1 tablet Albuterol Sulfate [facility] [address]-86 Inhalation as needed (prn) Active 3 ml Metformin HCl [facility] [address]-29 500 mg Orally once a day Active 1/2 tablet Escitalopram Oxalate [facility] [address]-72 10 mg Orally Once a day Active 1 tablet Warfarin Sodium [facility] [address]-93 2.5 MG Orally daily Active 1 tablet PredniSONE [facility] [address]-26 5 MG Orally Once a day Active 1 tablet Furosemide [facility] [address]-79 40 MG Orally daily Active 1 tablet Allopurinol [facility] [address]-93 100 mg Orally Once a day Active 1 tablet Potassium Chloride [place] [facility] [address]-61 10 MEQ Orally Twice a day Active 2 tablets Losartan Potassium-HCTZ [facility] [address]-21 100-25 MG Orally Once a day Active 1 tablet Lexapro [facility] [address]-69 5 MG/5ML Orally Once a day Active 10 ml Simvastatin [facility] [address]-02 20 mg Orally Once a day Active 1 tablet in the evening Amlodipine Besylate [facility] [address]-22 5 MG PO daily Inactive 1 tablet Furosemide [facility] [address]-72 20 MG Orally Once a day Active 1 tablet Vital Signs Date/Time: Dec 15, 2015 BMI 40.72 Index Weight 260 lbs Height 67 in Temperature 98.1 F Cardiac Monitoring Heart Rate 101 /min Blood Pressure Diastolic 80 mm Hg Blood Pressure Systolic 110 mm Hg Results No Known Results Summary Purpose [employer]Works Submission
--- OUTSIDE RECORDS SUMMARY | 2018-02-06 12:34 | XMS REPORT ---
Author Author Julianna Moore [facility] e[employer] Address Unknown Phone Unavailable Care Team Providers Care Dining Car Hop Name Role Phone Julianna Moore Unavailable Allergies, Adverse Reactions, Alerts Substance Reaction Event Type Clindamycin 300 mg 10d Hives Drug Allergy Morphine Sulfate Hyperactive Drug Allergy Problems Problem Type Condition Code Onset Dates Condition Status Assessment Angina pectoris I20.9 Active Assessment Primary osteoarthritis of both knees M17.0 Active Assessment Patient unable to exercise Z78.9 Active Assessment Low back pain M54.5 Active Assessment Pure hypercholesterolemia E78.00 Active Assessment Lung nodule R91.1 Active Problem Atrial fibrillation I48.91 Active Assessment 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 Active Problem 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.893 Active Assessment Type 2 diabetes mellitus without complications E11.9 Active Problem Chronic idiopathic gout involving toe, 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 Problem Pure hypercholesterolemia E78.00 Active Problem 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 M05.741 Active Problem Paroxysmal atrial fibrillation I48.0 Active Problem Other chronic pain G89.29 Active Assessment CABRERA (dyspnea on exertion) R06.09 Active Assessment HTN (hypertension), benign I10 Active Problem Angina pectoris I20.9 Active Assessment Abnormal EKG R94.31 Active Problem CABRERA (dyspnea on exertion) R06.09 Active Problem 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 Active Problem Low back pain M54.5 Active Problem Lung nodule R91.1 Active 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 Active Problem 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 Assessment Chronic diastolic CHF (congestive heart failure), NYHA class 3 I50.32 Active Assessment Paroxysmal atrial fibrillation I48.0 Active Problem HTN (hypertension), benign I10 Active Problem Venous insufficiency I87.2 Active Problem Type 2 diabetes mellitus without complications E11.9 Active Problem Abnormal EKG R94.31 Active Medications Medication Code System Code Instructions Start Date End Date Status Dosage Ciprofloxacin [facility] [address]-49 500 MG/5ML (10%) Orally Twice a day Active 5 ml Simvastatin [facility] [address]-64 20 mg Orally Once a day Active 1 tablet in the evening Warfarin Sodium [facility] 53444082474 2.5MG Orally daily Active 1 tablet Escitalopram Oxalate [facility] [address]-92 10 mg Orally Once a day Active 1 tablet Metoprolol Succinate ER [facility] [address]-81 100 MG PO daily Active 1 tablet Fluconazole [facility] [address]-40 100 MG Orally daily Active 1 tablet Warfarin Sodium [facility] [address]-74 2.5 MG Orally daily Active 1 tablet Albuterol Sulfate [facility] [address]-72 Inhalation as needed (prn) Active 3 ml PredniSONE [facility] [address]-38 5 MG Orally QOD Active 1 tablet Potassium Chloride [place] [facility] 63540428709 10 MEQ Active TAKE 2 TABLETS TWICE DAILY Methotrexate [facility] [address]-96 2.5 MG Orally Weekly Active 4 tablets Allopurinol [facility] [address]-42 100 mg Orally Once a day Active 1 tablet Metformin HCl [facility] [address]-98 500 mg Orally once a day Active 1/2 tablet Furosemide [facility] 76011627329 40 MG Active TAKE 1 TABLET EVERY DAY Pepcid [facility] [address]-53 20 MG Orally Once a day Active 1 tablet at bedtime Results No Known Results Summary Purpose eClinicalWorks Submission
--- OUTSIDE RECORDS SUMMARY | 2018-02-06 12:35 | XMS REPORT ---
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
--- OUTSIDE RECORDS SUMMARY | 2018-02-06 12:35 | XMS REPORT ---
Author Author Jose M Moore Organization [employer] Address Unknown Phone Unavailable Care Team Providers Care Machine Tool Builder Name Role Phone Jose M Moore Unavailable Encounters Encounter Location Date Unknown Jose M Moore [place] Nov 16, 2013 Unknown Jose M Moore [facility] [place] Mar 02, 2014 Unknown Jose M [facility] [place] Apr 05, 2014 Unknown Jose M [facility] [place] Apr 06, 2014 Unknown Jose M [facility] [place] June 09, 2013 Unknown Jose M [facility] [place] September 10, 2013 Unknown Jose M [facility] [place] October 06, 2013 Unknown Jose M [facility] [place] Mar 16, 2014 3 motnhs f/u Jose M Moore [facility] [place] September 08, 2013 Unknown Jose M [facility] [place] Nov 24, 2013 Unknown Jose M Moore MD [place] Jan 05, 2016 Unknown Jose M Moore MD [place] June 14, 2014 Unknown Jose M Moore MD [place] Nov 29, 2014 Problems Problem Type Condition ICD-9 Code Onset Dates Condition Status Problem Type [...] extremities with other complications I83.893 Active Assessment HTN (hypertension), benign I10 Active Assessment Atrial fibrillation I48.91 Active Problem [facility] (current) use of insulin Z79.4 Active Assessment Pure hypercholesterolemia E78.00 Active Problem 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 [address]-90 40 MG Orally Once a day Active [address] [facility] [address]-93 2.5 MG Orally daily Active [address] [facility] [address]-59 20 mg Orally Once a day Active 1 tablet in the evening Losartan Potassium-HCTZ [facility] [address]-79 100-25 MG Orally Once a day Active 1 tablet Social History Social History Element Qualifiers Date Reported Smoking . Status Never Smoker Dec 15, 2015 Alcohol Use No. Dec 15, 2015 Alcohol Screening: No. Dec 15, 2015 Marital Status: . Dec 15, 2015 Do you drink alcohol? No. 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
--- OUTSIDE RECORDS SUMMARY | 2018-02-06 12:35 | XMS REPORT ---
Author Author Jose M Moore Organization [employer] Address Unknown Phone Unavailable Care Team Providers Care Mobile Application Tester Name Role Phone Jose M Moore CP Unavailable Encounters Encounter Location Date Unknown Jose M Moore MD [place] June 09, 2013 Unknown Jose M Moore MD [place] September 10, 2013 Problems Problem Type Condition ICD-9 Code Onset Dates Condition Status Problem Unspecified arthropathy, pelvic region and thigh 716.95 Active Problem Atrial fibrillation 427.31 Active Problem Diabetes mellitus without mention of complication, type II or unspecified type, not stated as uncontrolled 250.00 Active Problem Abnormal EKG 794.31 Active Problem Body Mass Index 40.0-44.9, adult V85.41 Active Problem HTN, Benign 401.1 Active Problem Aortic valve disorders 424.1 Active Medications Medication Code System Code Instructions Start Date End Date Status Dosage Potassium Chloride [facility] [address]-32 10 MEQ Orally Twice a day Mar 09, 2014 Active 2 capsule Social History Social History Element Qualifiers Date Reported Smoking . Status Never Smoker September 13, 2013 Alcohol Use No. September 13, 2013 Alcohol Screening: No. September 13, 2013 Marital Status: . September 13, 2013 Do you drink alcohol? No. 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
--- OUTSIDE RECORDS SUMMARY | 2018-02-06 12:35 | XMS REPORT ---
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 M05.741 Active Assessment Pure hypercholesterolemia E78.00 Active Assessment 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 Active Assessment Abnormal EKG R94.31 Active Assessment Type 2 diabetes mellitus without complications E11.9 Active Problem 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 M05.741 Active Assessment 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 Active Problem Pure hypercholesterolemia E78.00 Active Assessment CABRERA (dyspnea on exertion) R06.09 Active Problem 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 Active Problem Low back pain M54.5 Active Problem CABRERA (dyspnea on exertion) R06.09 Active Problem Primary osteoarthritis of both knees M17.0 Active Problem Patient unable to exercise Z78.9 Active Problem Abnormal EKG R94.31 Active Assessment Atrial fibrillation I48.91 Active Problem Angina pectoris I20.9 Active Assessment HTN (hypertension), benign I10 Active Problem Lung nodule R91.1 Active Problem [...] involving toe, 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 Problem halfway (current) use of insulin Z79.4 Active Problem 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 Medications Medication Code System Code Instructions Start Date End Date Status Dosage Simvastatin [facility] 16480409241 20 mg Orally Once a day Active 1 tablet in the evening Metformin HCl [facility] 06149521806 500 mg Orally once a day Active 1/2 tablet PredniSONE [facility] 95796345155 5 MG Orally QOD Active 1 tablet Warfarin Sodium [facility] 68739653051 2.5 MG Orally daily except Saturday Active 1 tablet Allopurinol [facility] 50169033746 100 mg Orally Once a day Active 1 tablet Metoprolol Succinate ER [facility] 38119459040 50MG Orally Twice a day Active 1 tablet Escitalopram Oxalate [facility] 05870352347 10 mg Orally Once a day Active 1 tablet Furosemide [facility] 06850337459 40 MG Orally Once a day Active 1 tablet Potassium Chloride [place] [facility] 87822707614 10 MEQ Orally Twice a day Active 2 tablets Methotrexate [facility] 52988084867 2.5 MG Orally Weekly Active 4 tablets Albuterol Sulfate [facility] 09309732628 Inhalation as needed (prn) Active 3 ml Losartan Potassium-HCTZ [facility] 57443799667 100-25 MG Orally Once a day Inactive 1 tablet Vital Signs Date/Time: Mar 06, 2016 BMI 39.46 Index Weight 252 lbs Height 67 in Temperature 97.1 F Cardiac Monitoring Heart Rate 90 /min Blood Pressure Diastolic 64 mm Hg Blood Pressure Systolic 102 mm Hg Results No Known Results Summary Purpose eClinicalWorks Submission
--- OUTSIDE RECORDS SUMMARY | 2018-02-06 12:35 | XMS REPORT ---
Author Author Jose M Moore Organization eClinicalWorks Address Unknown Phone Unavailable Care Team Providers Care Crossing Watchman Name Role Phone Jose M Moore CP Unavailable Allergies, Adverse Reactions, Alerts Substance Reaction Event Type Clindamycin 300 mg 10d Hives Drug Allergy Morphine Sulfate Hyperactive Drug Allergy Encounters Encounter Location Date Unknown Jose M Moore MD [place] June 09, 2013 Problems Problem Type Condition ICD-9 Code Onset Dates Condition Status Assessment Aortic valve disorders 424.1 Active Assessment Atrial fibrillation 427.31 Active Assessment HTN, Benign 401.1 Active Problem Unspecified arthropathy, pelvic region and thigh 716.95 Active Problem Atrial fibrillation 427.31 Active Problem Diabetes mellitus without mention of complication, type II or unspecified type, not stated as uncontrolled 250.00 Active Problem Abnormal EKG 794.31 Active Problem Body Mass Index 40.0-44.9, adult V85.41 Active Problem HTN, Benign 401.1 Active Problem Aortic valve disorders 424.1 Active Assessment Unspecified arthropathy, pelvic region and thigh 716.95 Active Assessment Diabetes mellitus without mention of complication, type II or unspecified type, not stated as uncontrolled 250.00 Active Assessment Abnormal EKG 794.31 Active Medications Medication Code System Code Instructions Start Date End Date Status Dosage Metoprolol Succinate Unknown 0 50 MG Orally Once PM Active as directed Simvastatin [facility] [address]-82 20 mg Orally Once a day Active 1 tablet every evening Escitalopram Oxalate [facility] [address]-00 10 MG Orally Once a day Active 1 tablet Coumadin [facility] [address]-82 3 MG Orally daily Active 1 tablet Metoprolol Succinate ER [facility] [address]-72 50 MG Orally Once AM Active 1/2 tablet Potassium Chloride [facility] [address]-29 10 MEQ Orally Four times a day Active 1 capsule Metformin HCl [facility] [address]-80 500 mg Orally once a day Active 1 tablet with meals Allopurinol [facility] [address]-88 100 MG Orally Once a day Active 1 tablet Toprol XL [facility] [address]-42 50 mg Orally 25mg in AM, 50 mg in PM Active 1 tablet Losartan Potassium-HCTZ [facility] [address]-04 100-25 MG Orally Once a day Active 1 tablet Furosemide [facility] [address]-32 20 mg Orally Once a day Active 1 tablet Warfarin Sodium [facility] [address]-17 3 MG Orally Once PM Active 1 tablet Amlodipine Besylate [facility] [address]-48 5 MG Orally Once a day Active 1 tablet Social History Social History Element Qualifiers Date Reported Smoking . Status Never Smoker September 08, 2013 Alcohol Use No. September 08, 2013 Alcohol Screening: No. September 08, 2013 Marital Status: . September 08, 2013 Do you drink alcohol? No. 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
--- OUTSIDE RECORDS SUMMARY | 2018-02-06 12:35 | XMS REPORT ---
Author Author Jose M Moore Organization [employer] Address Unknown Phone Unavailable Care Team Providers Care Feather Washer Name Role Phone Jose M Moore CP Unavailable Allergies, Adverse Reactions, Alerts Substance Reaction Event Type Clindamycin 300 mg 10d Hives Drug Allergy Morphine Sulfate Hyperactive Drug Allergy Problems Problem Type Condition Code Onset Dates Condition Status Assessment Primary osteoarthritis of both knees M17.0 Active Assessment Low back pain M54.5 Active Assessment Patient unable to exercise Z78.9 Active Assessment Pure hypercholesterolemia E78.00 Active Assessment Lung nodule R91.1 Active Assessment 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 Active Assessment Type 2 diabetes mellitus without complications E11.9 Active Assessment Abnormal EKG R94.31 Active Problem 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 M05.741 Active Assessment HTN (hypertension), benign I10 Active Problem Pure hypercholesterolemia E78.00 Active Assessment CABRERA (dyspnea on exertion) R06.09 Active Problem 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 Active Problem Low back pain M54.5 Active Problem CABRERA (dyspnea on exertion) R06.09 Active Problem Primary osteoarthritis of both knees M17.0 Active Problem Patient unable to exercise Z78.9 Active Problem Abnormal EKG R94.31 Active Assessment Paroxysmal atrial fibrillation I48.0 Active Problem Angina pectoris I20.9 Active Assessment Chronic diastolic CHF (congestive heart failure), NYHA class 3 I50.32 Active Problem Lung nodule R91.1 Active Problem [...] toe, 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 Active Problem 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 Medications Medication Code System Code Instructions Start Date End Date Status Dosage Pepcid [facility] 48170041503 20 MG Orally Once a day Active 1 tablet at bedtime Metformin HCl [facility] 96322417955 500 mg Orally once a day Active 1/2 tablet Potassium Chloride [place] ER [facility] 91355034942 10 MEQ Active TAKE 2 TABLETS TWICE DAILY Furosemide [facility] 61671738108 40 MG Active TAKE 1 TABLET EVERY DAY Metoprolol Succinate ER [facility] 74437300721 100 MG PO daily Active 1 tablet Escitalopram Oxalate [facility] 93356644269 10 mg Orally Once a day Active 1 tablet Methotrexate [facility] 94745600395 2.5 MG Orally Weekly Active 4 tablets PredniSONE [facility] 36696469685 5 MG Orally QOD Active 1 tablet Allopurinol [facility] 49188487303 100 mg Orally Once a day Active 1 tablet Albuterol Sulfate [facility] 76756508601 Inhalation as needed (prn) Active 3 ml Warfarin Sodium [facility] 71512878680 2.5 MG Orally daily Active 1 tablet Simvastatin [facility] 98940685284 20 mg Orally Once a day Active 1 tablet in the evening Vital Signs Date/Time: Oct 17, 2016 BMI 36.33 Index Weight 232 lbs Height 67 in Temperature 97.3 F Cardiac Monitoring Heart Rate 86 /min Blood Pressure Diastolic 80 mm Hg Blood Pressure Systolic 142 mm Hg Results No Known Results Summary Purpose eClinicalWorks Submission
--- OUTSIDE RECORDS SUMMARY | 2018-02-06 12:35 | XMS REPORT ---
Author Author Jose M Moore Organization [employer] Address Unknown Phone Unavailable Care Team Providers Care Court Specialist Name Role Phone Jose M Moore CP Unavailable Encounters Encounter Location Date Unknown Jose M Moore MD PA June 09, 2013 Unknown Jose M Moore MD PA September 10, 2013 Unknown Jose M Moore MD [place] October 06, 2013 Problems Problem Type Condition ICD-9 Code [...] Active Problem Aortic valve disorders 424.1 Active Social History Social History Element Qualifiers Date Reported Smoking . Status Never Smoker September 13, 2013 Alcohol Use No. September 13, 2013 Alcohol Screening: No. September 13, 2013 Marital Status: . September 13, 2013 Do you drink alcohol? No. 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
--- OUTSIDE RECORDS SUMMARY | 2018-02-06 12:35 | XMS REPORT | Summary of Care ---
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 Microstrategy Reports Developer Name Role Phone DALLAS KEENE M.D. Unavailable Unavailable JASSI OLIVARES [place], [place] Unavailable Unavailable Unavailable Unavailable Functional Status Name Dates Details Functional status health issues are not documented Status: Name Dates Details Cognitive status health issues are not documented Status: Problems Name Dates Details Atrial fibrillation (427.31, I48.91) Status: Active Congestive heart failure (428.0, I50.9) Status: Active Stage 3 chronic kidney disease (585.3, N18.3) Status: Active Edema (782.3, R60.9) Status: Active Major depression (296.20, F32.9) Status: Active Rheumatoid arthritis (714.0, M06.9) Status: Active Encounter for monitoring Coumadin therapy (V58.83, Z51.81) Status: Active Gout (274.9, M10.9) Status: Active Benign hypertension (401.1, I10) Status: Active Hemorrhoids (455.6, K64.9) Status: Active Mixed hyperlipidemia (272.2, E78.2) Status: Active Need for immunization against influenza (V04.81, Z23) Status: Active Medications Name Dates Details Lasix 40 MG Oral Tablet TAKE ONE TABLET BY MOUTH ONCE DAILY R.N. Active Metoprolol Tartrate 100 MG Oral Tablet TAKE 1 TABLET EVERY 12 HOURS DAILY.needs office visit * Quantity: 30 Refills: 0 R.N. Active Coumadin 3 MG Oral Tablet TAKE 1 TABLET DAILY. * Refills: 0 R.N. Active Lexapro 10 MG Oral Tablet TAKE 1 TABLET DAILY * Quantity: 30 Refills: 2 R.N. * End : 02-Apr-2018 Active Klor-Con TBCR TAKE 1 TABLET 4 TIMES DAILY * Refills: 0 R.N. Active Methotrexate Sodium 2.5 MG Oral Tablet TAKE 4 TABLETS WEEKLY. * Refills: 0 R.N. Active Folic Acid 1 MG Oral Tablet TAKE 1 TABLET DAILY. * Quantity: 90 Refills: 3 R.N. Active Simvastatin 20 MG Oral Tablet TAKE 1 TABLET BY MOUTH EVERY DAY * Quantity: 30 Refills: 0 R.N. Active Allopurinol 100 MG Oral Tablet TAKE 2 TABLETS BY MOUTH EVERY DAY * Quantity: 60 Refills: 1 R.N. Active [place] 3 CAPS TAKE 3 CAPSULE DAILY * Refills: 0 R.N. Active Oscal 500/200 D-3 500-200 MG-UNIT Oral Tablet TAKE 3 TABLET DAILY * Refills: 0 R.N. Active Hydrocortisone 1 % Rectal Cream Apply to affected area BID * Quantity: 1 Refills: 2 DALLAS KEENE M.D. * Start : 02-Jan-2018 Active 28.4 GM Tube Allergies and Adverse Reactions Name Dates Details No Known Drug Allergies (Allergy) Status: Active Past Medical History Name Dates Details History of Anxiety and depression (300.00, F41.9) Status: Resolved History of hyperlipidemia (V12.29, Z86.39) Status: Resolved History of hypertension (V12.59, Z86.79) Status: Resolved Procedures Procedure Dates Details History of Wrist Surgery Completed History of Hip Surgery Completed Immunization Name Dates Details Fluzone High-Dose 0.5 ML Intramuscular Suspension Prefilled Syringe Lot #: [id number] on: 02-Jan-2018 Family History Name Dates Details Family history of diabetes mellitus (V18.0, Z83.3) Status: Active Name Dates Details Family history of diabetes mellitus (V18.0, Z83.3) Status: Active Name Dates Details Family history of diabetes mellitus (V18.0, Z83.3) Status: Active Social History Name Dates Details - Status: Name Dates Details Never smoker Vital Signs Date Test Result Details No Known Vitals to report Results Date Description Value Details [id number] [O] PT/INR (in office) PT 31.1 INR 2.4 [id number] [QH] LIPID PANEL WITH REFLEX TO DIRECT LDL CHOLESTEROL, TOTAL 127 mg/dl (Normal) Range: <200 HDL CHOLESTEROL 60 mg/dl (Normal) Range: >50 TRIGLYCERIDES 108 mg/dl (Normal) Range: <150 LDL-CHOLESTEROL 48 {MG/DL__CAL} (Normal) Comments: Reference range: <100 Desirable range <100 mg/dL for primary prevention; <70 mg/dL for patients with CHD or diabetic patients with > or=2 CHD risk factors. LDL-C is now calculated using nika Aguilera calculation, which is a validated novel method providing better accuracy than the Friedewald equation in the estimation of LDL-C. Ramón ADAMS et al. YANY. 2013;310(63): 7547-6182 ([email or web address]/RYF222) CHOL/HDLC RATIO 2.1 {CALC} (Normal) Range: <5.0 NON HDL CHOLESTEROL 67 {MG/DL__CAL} (Normal) Range: <130 Comments: For patients with diabetes plus 1 major ASCVD risk factor, treating to a non-HDL-C goal of <100 mg/dL (LDL-C of <70 mg/dL) is considered a therapeutic option. [id number] [[facility]] CMP W/EGFR GLUCOSE 85 mg/dl (Normal) Range: 65-139 Comments: Non-fasting reference interval UREA NITROGEN (BUN) 25 mg/dl (Normal) Range: 7-25 CREATININE 1.13 mg/dl (Above high threshold) Range: 0.60-0.93 Comments: For patients >49 years of age, the reference limitfor Creatinine is approximately 13% higher for peopleidentified as -Stateless. eGFR NON- 47 {ML/MIN/1.7} (Below low threshold) Range: > OR=60 eGFR 55 {ML/MIN/1.7} (Below low threshold) Range: > OR=60 BUN/CREATININE RATIO 22 {CALC} (Normal) Range: 6-22 SODIUM 145 mmol/L (Normal) Range: 135-146 POTASSIUM 4.6 mmol/L (Normal) Range: 3.5-5.3 CHLORIDE 103 mmol/L (Normal) Range: 98-110 CARBON DIOXIDE 34 mmol/L (Above high threshold) Range: 20-32 CALCIUM 9.5 mg/dl (Normal) Range: 8.6-10.4 PROTEIN, TOTAL 6.8 g/dl (Normal) Range: 6.1-8.1 ALBUMIN 4.2 g/dl (Normal) Range: 3.6-5.1 GLOBULIN 2.6 {G/DL__CALC} (Normal) Range: 1.9-3.7 ALBUMIN/GLOBULIN RATIO 1.6 {CALC} (Normal) Range: 1.0-2.5 BILIRUBIN, TOTAL 1.4 mg/dl (Above high threshold) Range: 0.2-1.2 ALKALINE PHSPHATASE 82 u/l (Normal) Range: 33-130 AST 18 u/l (Normal) Range: 10-35 ALT 15 u/l (Normal) Range: 6-29 [id number] [[facility]] CBC (INCLUDES DIFF/PLT) WHITE BLOOD CELL COUNT 7.9 {Thousand/u} (Normal) Range: 3.8-10.8 RED BLOOD CELL COUNT 4.06 {Million/uL} (Normal) Range: 3.80-5.10 HEMAGLOBIN 12.4 g/dl (Normal) Range: 11.7-15.5 HEMATOCRIT 37.8 % (Normal) Range: 35.0-45.0 MCV 93.1 fL (Normal) Range: 80.0-100.0 MCH 30.5 pg (Normal) Range: 27.0-33.0 MCHC 32.8 g/dl (Normal) Range: 32.0-36.0 RDW 16.0 % (Above high threshold) Range: 11.0-15.0 PLATELET COUNT 158 {Thousand/u} (Normal) Range: 140-400 MPV 11.1 fL (Normal) Range: 7.5-12.5 ABSOLUTE NEUTROPHILS 5577 {cells/uL} (Normal) Range: 3716-2969 ABSOLUTE LYMPHOCYTES 1675 {cells/uL} (Normal) Range: 850-3900 ABSOLUTE MONOCYTES 450 {cells/uL} (Normal) Range: 200-950 ABSOLUTE EOSINOPHILS 174 {cells/uL} (Normal) Range: 15-500 ABSOLUTE BASOPHILS 24 {cells/uL} (Normal) Range: 0-200 NEUTROPHILS 70.6 % (Normal) LYMPHOCYTES 21.2 % (Normal) MONOCYTES 5.7 % (Normal) EOSINOPHILS 2.2 % (Normal) BASOPHILS 0.3 % (Normal) [id number] [[facility]] TSH, 3RD GENERATION W/REFLEX TO FT4 Comments: REPORT COMMENT:FASTING:NO TSH, 3RD GENERATION W/REFLEX TO FT4 1.91 {MIU/L} (Normal) Range: 0.40-4.50 Plan of Care Name Dates Details Planned Observations Planned Goals not documented Planned Encounters Appointment; DALLAS KEENE M.D. On: 10-Feb-2018 14:30 Interventions Provided Discussion/Summary* Your labs are good except that the decreased kidney function, which you already know about. I will see you in 6 months or as needed. Instructions Name Dates Details Instructions not documented Encounters Appointment; DALLAS KEENE M.D. Encounter Diagnosis: Problem not documented On: 02-Jan-2018 11:00
--- OUTSIDE RECORDS SUMMARY | 2018-02-06 12:35 | XMS REPORT ---
Author Author Jose M Moore Organization eClinicalWorks Address Unknown Phone Unavailable Care Team Providers Care Soil Technologist Name Role Phone Jose M Moore CP [...] ICD-9 Code Onset Dates Condition Status Problem Body Mass Index 40.0-44.9, adult V85.41 Active Problem Diabetes mellitus without mention of complication, type II or unspecified type, not stated as uncontrolled 250.00 Active Problem Unspecified arthropathy, pelvic region and thigh 716.95 Active Problem Sinus Bradycardia 427.89 Active Problem Aortic valve disorders 424.1 Active Problem Abnormal EKG 794.31 Active Problem Atrial fibrillation 427.31 Active Problem HTN, Benign 401.1 Active Medications Medication Code System Code Instructions Start Date End Date Status Dosage [facility] [address]-24 10 MEQ Orally TID Apr 01, 2014 Active 1 capsule Metoprolol Succinate [facility] [address]-04 50 MG Orally Twice a day Active 1 tablet Social History Social History Element Qualifiers Date Reported Smoking . Status Never Smoker Nov 24, 2013 Alcohol Use No. Nov 24, 2013 Alcohol Screening: No. Nov 24, 2013 Marital Status: . Nov 24, 2013 Do you drink alcohol? No. 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
--- OUTSIDE RECORDS SUMMARY | 2018-02-06 12:35 | XMS REPORT ---
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
--- OUTSIDE RECORDS SUMMARY | 2018-02-06 12:35 | XMS REPORT ---
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 Medications Medication Code System Code Instructions Start Date End Date Status Dosage Warfarin Sodium [facility] [address]-34 2.5 MG Orally daily Active 1 tablet Potassium Chloride [place] ER [facility] [address]-43 10 MEQ Orally Twice a day Active 2 tablets Losartan Potassium-HCTZ [facility] [address]-37 100-25 MG Orally Once a day Active 1 tablet Simvastatin [facility] [address]-01 20 mg Orally Once a day Active 1 tablet in the evening Metoprolol Succinate ER [facility] 21990093637 50MG Orally Twice a day Active 1 tablet Furosemide [facility] [address]-85 40 MG Orally Once a day Active [...]
--- OUTSIDE RECORDS SUMMARY | 2018-02-06 12:35 | XMS REPORT ---
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 Status Never Smoker Dec 15, 2015 Alcohol Use No. Dec 15, 2015 Alcohol Screening: No. Dec 15, 2015 Marital Status: . Dec 15, 2015 Do you drink alcohol? No. 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
--- OUTSIDE RECORDS SUMMARY | 2018-02-06 12:35 | XMS REPORT ---
Author Author Jose M Moore Organization eClinicalWorks Address Unknown Phone Unavailable Care Team Providers Care Trimming Department Blocker Name Role Phone Jose M Moore CP Unavailable Encounters Encounter Location Date Unknown Jose M Moore MD PA Nov 16, 2013 Unknown Jose M Moore MD PA June [...] Date End Date Status Dosage Potassium Chloride [facility] 15228684925 10 Orally TID Active 1 capsule Social History Social History Element Qualifiers Date Reported Smoking . Status Never Smoker Nov 24, 2013 Alcohol Use No. Nov 24, 2013 Alcohol Screening: No. Nov 24, 2013 Marital Status: . Nov 24, 2013 Do you drink alcohol? No. 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
--- OUTSIDE RECORDS SUMMARY | 2018-02-06 12:35 | XMS REPORT ---
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 Medications Medication Code System Code Instructions Start Date End Date Status Dosage Metoprolol Succinate ER [facility] 50996153177 100 MG PO daily Active 1 tablet Allopurinol [facility] 62215845610 100 mg Orally Once a day Active 1 tablet Methotrexate [facility] 33819088209 2.5 MG Orally Weekly Active 4 tablets Furosemide [facility] 42421975515 40 MG Active TAKE 1 TABLET EVERY DAY Warfarin Sodium [facility] 23422609370 2.5 MG Orally daily Active 1 tablet Albuterol Sulfate [facility] 28928854293 Inhalation as needed (prn) Active 3 ml Metformin HCl [facility] 32440802118 500 mg Orally once a day Active 1/2 tablet Pepcid [facility] 29177027167 20 MG Orally Once a day Active 1 tablet at bedtime Escitalopram Oxalate [facility] 22904867578 10 mg Orally Once a day Active 1 tablet Potassium Chloride [place] ER [facility] 64305846619 10 MEQ Active TAKE 2 TABLETS TWICE DAILY PredniSONE [facility] 31629700915 5 MG Orally QOD Active 1 tablet Simvastatin [facility] 77736071880 20 mg Orally Once a day Active 1 tablet in the evening Vital Signs Date/Time: Dec 04, 2016 BMI 36.33 Index Weight 232 lbs Height 67 in Temperature 94.7 F Cardiac Monitoring Heart Rate 86 /min Blood Pressure Diastolic 78 mm Hg Blood Pressure Systolic 120 mm Hg Results No Known Results Summary Purpose eClinicalWorks Submission
[2018-02-06] MEDS ORDERED: SODIUM CHLORIDE 0.9% 500ML 500 ML IV STA (12:51)
[2018-02-06] MEDS ORDERED: ONDANSETRON HCL INJ 2 MG/ML VIAL IV STA (12:51)
[2018-02-06] MEDS ORDERED: PANTOPRAZOLE 40 MG 10ML VIAL IV NR (13:15)
[2018-02-06 13:19] LABS: BASOPHILS % 0.3 % (0.0-1.0); EOSINOPHILS # (AUTO) 0.1 (0.0-0.4); EOSINOPHILS % 1.1 % (0.0-6.0); HEMATOCRIT 38.5 % (34.2-44.1); HEMOGLOBIN 12.6 g/dL (12.0-16.0); LYMPHOCYTES # (AUTO) 1.4 (1.0-3.2); LYMPHOCYTES % 21.3 % (18.0-39.1); MEAN CORPUSCULAR HEMOGLOBIN 31.1 pg (28-32); MEAN CORPUSCULAR HGB CONC 32.7 g/dL (31-35); MEAN CORPUSCULAR VOLUME 95.1 fL (81-99); MONOCYTES # (AUTO) 0.1 (0.2-0.8); MONOCYTES % 2.2 % (4.4-11.3); NEUTROPHILS # (AUTO) 4.8 (2.1-6.9); NEUTROPHILS % 74.6 % (38.7-80.0); PLATELET COUNT 151 x10e3/uL (140-360); RED BLOOD COUNT 4.05 x10e6/uL (3.6-5.1); RED CELL DISTRIBUTION WIDTH 16.8 % (11.7-14.4)
[2018-02-06 13:24] LABS: BILIRUBIN,URINE NEGATIVE (NEGATIVE); CLARITY,URINE CLEAR (CLEAR); COLOR,URINE YELLOW (YELLOW); KETONES,URINE NEGATIVE (NEGATIVE); LEUKOCYTE ESTERASE ,URINE NEGATIVE (NEGATIVE); NITRITE,URINE NEGATIVE (NEGATIVE); PROTEIN,URINE DIPSTICK NEGATIVE (NEGATIVE); URINE UROBILINOGEN 0.2 mg/dL (0.2 - 1)
[2018-02-06 13:35] LABS: BACTERIA,URINE MANY /HPF; EPITHELIAL CELLS,URINE MANY /LPF
[2018-02-06 13:41] LABS: ALBUMIN 3.7 g/dL (3.5-5.0); ALBUMIN/GLOBULIN RATIO 1.1 (0.8-2.0); ANION GAP 13.8 mmol/L (8-16); CALCIUM 9.8 mg/dL (8.4-10.2); CREATININE, SERUM 1.17 mg/dL (0.57-1.11); POTASSIUM 3.8 mmol/L (3.5-5.1)
[2018-02-06 13:47] LABS: CREATINE KINASE MB 0.7 ng/mL (0-5.0)
--- NOTE | 2018-02-06 15:52 | Diagnostic Imaging Report ---
CT HEAD WITHOUT CONTRAST COMPARISON: Head CT 02/26/2016 INDICATION: Dizziness, vomiting Technique: Noncontrast axial scans were obtained from skull base to the vertex. Coronal and sagittal reconstructions obtained from the axial data. One or more of the following dose reduction techniques were used: Automated exposure control, adjustment of the mA and/or kV according to patient size, and/or utilization of iterative reconstruction technique. DISCUSSION: Scalp/Skull: Unremarkable. Brain sulci: Mildly prominent. Ventricles: Compensatory dilatation. Extra-axial spaces: No masses or fluid collections. Carotid siphon calcifications are present. Parenchyma: Mild bilateral deep white matter hypodensity is likely chronic microvascular ischemic change. Otherwise, no masses, hemorrhage, or large vascular territory acute infarct. Dural sinuses: No abnormal densities. Sellar/Suprasellar region: Intact. Skull base: Intact. Incidental findings: None. IMPRESSION: 1. No acute intracranial abnormalities. 2. Mild supratentorial chronic microvascular ischemic change. Mild generalized cerebral volume loss. Signed by: Dr. Hever Marshall M.D. on 02/06/2018 3:49 PM
--- NOTE | 2018-02-06 16:41 | Diagnostic Imaging Report ---
EXAM: CT of the abdomen and pelvis WITH contrast HISTORY: Abdominal pain, dizzy, vomiting COMPARISON: CT of the chest April 05, 2016. TECHNIQUE: The abdomen and pelvis were scanned utilizing a multidetector helical scanner. Coronal and sagittal reformats are provided. PROTOCOL: Routine IV CONTRAST: 100 cc of Isovue-370. ORAL CONTRAST: Water RADIATION DOSE: Total DLP: 767.7 to mGy*cm Estimated effective dose: (DLP x 0.015 x size factor) Dose modulation, iterative reconstruction, and/or weight based adjustment of the mA/kV was utilized to reduce the radiation dose to as low as reasonably achievable. COMPLICATIONS: None FINDINGS: LOWER THORAX: Improved aeration of the lung bases. Stable 6 mm nodule within the right lower lobe (series 2 image 4). Small hiatal hernia. HEPATOBILIARY: No focal hepatic lesions. No biliary ductal dilatation. The gallbladder is unremarkable. SPLEEN: No splenomegaly. PANCREAS: No focal masses or ductal dilatation. Diffuse parenchymal atrophy. ADRENALS: A 1 cm left adrenal nodule, in retrospect appears essentially stable and on the comparison measured negative Hounsfield density. KIDNEYS/URETERS: Multiple bilateral hypodensities, likely small cysts. Right: No hydronephrosis. A 0.8 cm nonobstructing calcification at the interpolar region. An indeterminate 1.6 cm partially exophytic hypodense lesion near the inferior pole (series 2 image 42). Left: No hydronephrosis. A 0.4 cm nonobstructing calcification near the inferior pole. Indeterminant 3.4 cm partially exophytic hypodense lesion at the anterior interpolar region (series 2 image 40). PELVIC ORGANS/BLADDER: The visualized pelvic organs appear unremarkable. PERITONEUM / RETROPERITONEUM: No free air or fluid. LYMPH NODES: No pathologically enlarged lymph node. VESSELS: Diffuse scattered atherosclerotic vascular calcifications. GI TRACT: No distention or wall thickening identified. The stomach is decompressed, which limits evaluation. Colonic diverticulosis, most notably the sigmoid colon, without CT evidence of acute diverticulitis. The appendix is not definitely visualized, but there are no pericecal inflammatory changes to suggest acute appendicitis. BONES: Diffusely decreased mineralization of the osseous structures limits bone detail. Partially visualized right femoral metallic hardware, associated beam hardening artifact partially limits regional evaluation. Left convex curvature of the lumbar spine and multilevel degenerative changes. Mild age-indeterminate anterior wedge compression deformity of L2. SOFT TISSUES: Unremarkable. IMPRESSION: 1. No bowel obstruction or ileus. 2. Bilateral indeterminate renal mass, recommend a follow-up nonemergent CT or MRI of the abdomen with and without contrast for further characterization. 3. Osseous demineralization and age-indeterminate L2 anterior wedge compression deformity. 4. Colonic diverticulosis. 5. Small hiatal hernia. 6. Stable 6 mm right lower lobe pulmonary nodule, given the almost 2 years of stability, this favors a benign finding. 7. A 1 cm left adrenal nodule, compatible with a benign lipid rich adenoma. Signed by: Dr. Skyler Lopez D.O., M.M.M. on 02/06/2018 4:38 PM
[2018-02-06] MEDS ORDERED: SODIUM CHLORIDE 0.9% 50ML 50 ML ONE (16:50)
[2018-02-06] MEDS ORDERED: IOPAMIDOL 370 MG/ML 200 ML INFUS..BTL INJ ONE (16:51)
[2018-02-06] MEDS ORDERED: MECLIZINE HCL 12.5 MG TAB PO ONE (18:15)
[2018-02-06 19:33] LABS: FREE THYROXINE INDEX 2.3931 (1.4-3.8); THYROID STIMULATING HORMONE 1.651 uIU/mL (0.350-4.940)
== END 2018-02-06 19:40 | disposition home or self-care (01) ==
LOC: ER 12:30
DX: R11.2 Nausea with vomiting, unspecified (principal); R19.7 Diarrhea, unspecified; R10.9 Unspecified abdominal pain; H81.10 Benign paroxysmal vertigo, unspecified ear; I10 Essential (primary) hypertension; E11.9 Type 2 diabetes mellitus without complications; I48.91 Unspecified atrial fibrillation; I50.9 Heart failure, unspecified; M10.9 Gout, unspecified
CPT/HCPCS: 36415; 70450; 74177; 80053; 81001; 82550; 82553; 83690; 84436; 84443; 84479; 84484; 85025; 93005; 99284; J2405; J7040; Q9967

== ENCOUNTER 2019-02-24 16:45 | Emergency (ER) | payer MEDICARE ==
[~2019-02-24] VITALS: Ht 170.2 cm; Wt 106.6 kg
--- NOTE | 2019-02-24 18:59 | Diagnostic Imaging Report ---
Head and cervical spine CTs without IV contrast History: Fall, pain Comparison studies: None Technique: Axial images were obtained from the brain and cervical spine. Coronal and sagittal images reconstructed from the axial data. Dose modulation, iterative reconstruction, and/or weight based adjustment of the mA/kV was utilized to reduce the radiation dose to as low as reasonably achievable. Intravenous contrast: None Findings: Head CT: Scalp/skull: Left periorbital soft tissue swelling. No calvarial fracture. No lytic or blastic lesion. Brain sulci: Appropriate for age. Ventricles: Mild compensatory dilatation. No hydrocephalus. Extra-axial spaces: No masses. No fluid collections. Parenchyma: Ill-defined and mildly confluent hypodensities in the supratentorial white matter are nonspecific but most compatible with chronic microvascular ischemic changes. No masses, acute hemorrhage, acute or chronic cortical vascular insults. Sellar/suprasellar region: No abnormalities. Craniocervical junction: Patent foramen magnum. No Chiari one malformation. Incidental findings: Atherosclerotic calcifications in the carotid siphons. Cervical spine CT: Airway: Patent. Fractures: None. Soft tissues: No gross abnormalities. Atlantoaxial articulation: Intact. Alignment: There is reversal of the normal cervical lordosis. Minimal degenerative anterolisthesis of C3 on C4 as well as mild degenerative retrolisthesis of C4 on C5 and C5 on C6. Cervicomedullary junction: No abnormalities. Patent foramen magnum. Vertebrae: No infection or neoplasm. Degenerative changes: Multilevel advanced degenerative disc changes with severe disc height loss at C3-C4, C4-C5, and C5-C6. Disc osteophyte and listhesis from C3 to C6 and disc osteophyte complex at C6-C7 result in mild canal stenosis. Advanced multilevel facet arthrosis. Multilevel uncovertebral and facet arthrosis result in multilevel foraminal stenosis which is severe bilaterally at C3-C4, C4-C5 and C5-C6 and moderate bilaterally at C6-C7. Included lung apices: Reticulonodular density at the right lung apex may be mild scarring. Incidental finds: Calcified atherosclerosis in the carotid bulbs with anatomical variant retropharyngeal course of the common carotid arteries and right internal carotid artery. IMPRESSION: Head CT: 1. Left periorbital soft tissue swelling. No fracture within the included imaged [id number]. Left orbital floor and completely imaged on this exam. Dedicated maxillofacial CT may further evaluate as clinically warranted. 2. No acute intracranial abnormalities. 3. Mild generalized parenchymal volume loss. 4. Mild chronic microvascular ischemic changes. Cervical spine CT: 1. No cervical spine fracture or acute subluxation. 2. Advanced multilevel degenerative changes as described. 3. Cannot adequately evaluate for ligament, spinal cord and or vascular abnormalities. A preliminary report was provided by Dr. Barbosa shortly upon completion exam. A final report position by Dr. Mayfield at 8:07 PM on 02/24/2019. Signed by: Dr. Rohit Mayfield M.D. on 02/24/2019 8:10 PM
--- NOTE | 2019-02-24 19:28 | Diagnostic Imaging Report ---
EXAMINATION: CHEST 2 VIEWS INDICATION: FALL, RIGHT RIB PAIN ^[id number] ^[id number] COMPARISON: None available in PACS at this time. FINDINGS: TUBES and LINES: None. LUNGS: Bibasilar pleural-parenchymal scarring. Right midlung scarring with mild elevation of the right hemidiaphragm. There is no evidence of pneumonia or pulmonary edema. Mild blunting of the right lateral costophrenic sulcus. PLEURA: No pneumothorax. HEART AND MEDIASTINUM: The cardiomediastinal silhouette is unremarkable. BONES AND SOFT TISSUES: Mild cortical irregularity of the left anterior seventh rib may represent a nondisplaced fracture. No displaced right rib fracture identified. UPPER ABDOMEN: No free air under the diaphragm. IMPRESSION: Mild cortical irregularity of the left anterior seventh rib may represent a nondisplaced fracture. No displaced right rib fracture identified. Signed by: Dr. Lavon Edward M.D. on 02/24/2019 7:24 PM
[2019-02-24 21:25] VITALS: BP 165/95
--- OUTSIDE RECORDS SUMMARY | 2019-02-27 13:48 | XMS REPORT | Summary of Care ---
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 Name Role Phone JASSI Guzman, DALLAS Unavailable Unavailable NAI Guzman, AAKASH RODRIGUEZ Unavailable Unavailable KALI Guzman, CALISTA Unavailable Unavailable HELEN N.P., [place] Unavailable Unavailable JASSI OLIVARES, DALLAS Mcgowan Unavailable Unavailable PAYAL OLIVARES, KWASI Rivera Unavailable Unavailable NAI OLIVARES [place], AAKASH RODRIGUEZ Unavailable Unavailable TODD OLIVARES [place], AUSTEN PHILIPPE Unavailable Unavailable CHAVA OLIVARES [place], [place] Shaffer Unavailable Unavailable Unavailable Unavailable Functional Status Name Dates Details Functional status health issues are not documented Status: Name Dates Details Cognitive status health issues are not documented Status: Problems Name Dates Details Hemorrhoids (455.6, K64.9) Status: Active Need for immunization against influenza (V04.81, Z23) Status: Active Vertigo (780.4, R42) Status: Active Rheumatoid arthritis (714.0, M06.9) Status: Active Stage 3 chronic kidney disease (585.3, N18.3) Status: Active Vitamin B12 deficiency (266.2, E53.8) Status: Active Nausea (787.02, R11.0) Status: Active Hospital discharge follow-up (V67.59, Z09) Status: Active Dehydration (276.51, E86.0) Status: Active Major depression (296.20, F32.9) Status: Active Gout (274.9, M10.9) Status: Active Osteoporosis (733.00, M81.0) Status: Active Need for pneumococcal vaccine (V03.82, Z23) Status: Active Advance directive discussed with patient (V65.49, Z71.89) Status: Active Encounter for mini-mental status examination Status: Active Depression screen (V79.0, Z13.31) Status: Active At moderate risk for fall (V15.88, Z91.81) Status: Active Medicare annual wellness visit, subsequent (V70.0, Z00.00) Status: Active Memory loss (780.93, R41.3) Status: Active Mixed hyperlipidemia (272.2, E78.2) Status: Active Acute internal derangement of right knee (717.9, M23.91) Status: Active Congestive heart failure (428.0, I50.9) Status: Active Right knee pain, unspecified chronicity (719.46, M25.561) Status: Active Medication refill (V68.1, Z76.0) Status: Active Burn of hand, right (944.00, T23.001A) Status: Active Abscess of buttock, left (682.5, L02.31) Status: Active Allergic reaction to drug, initial encounter (995.27, T78.40XA) Status: Active Atrial fibrillation (427.31, I48.91) Status: Active Chronic pain of right lower extremity (729.5, M79.604) Status: Active Encounter for monitoring Coumadin therapy (V58.83, Z51.81) Status: Active Benign hypertension (401.1, I10) Status: Active Colonoscopy refused (V64.2, Z53.20) Status: Active Colon cancer screening (V76.51, Z12.11) Status: Active Edema (782.3, R60.9) Status: Active Medications Name Dates Details Lasix 40 MG Oral Tablet TAKE 2 TABLET DAILY Active Metoprolol Tartrate 100 MG Oral Tablet take 1/2 tablet twice daily * Quantity: 180 Refills: 1 DALLAS KEENE M.D. Active Klor-Con TBCR TAKE 2 TABLETS TWICE DAILY (PT UNSURE OF STRENGTH) * Refills: 0 Active Escitalopram Oxalate 10 MG Oral Tablet TAKE 1 TABLET DAILY * Quantity: 90 Refills: 0 KALI Guzman CALISTA * End : 07-Jan-2019 Active [place] 3 CAPS TAKE 3 CAPSULE DAILY * Refills: 0 Active Folic Acid 1 MG Oral Tablet TAKE 1 TABLET DAILY. * Quantity: 90 Refills: 3 JASSI M.DDALLAS Mendez Active Allopurinol 100 MG Oral Tablet TAKE 2 TABLETS BY MOUTH EVERY DAY * Quantity: 180 Refills: 1 CALISTA BASS M.D. Active ARIPiprazole 2 MG Oral Tablet TAKE 1 TABLET DAILY DIRECTED. * Quantity: 90 Refills: 0 DALLAS KEENE M.D. * End : 16-Dec-2018 Active Simvastatin 20 MG Oral Tablet TAKE 1 TABLET EVERY DAY * Quantity: 90 Refills: 0 DALLAS KEENE M.D. * Start : 18-Nov-2018 Active Tylenol 8 Hour 650 MG Oral Tablet Extended Release TAKE 1 TABLET 4 TIMES DAILY NEEDED. * Refills: 0 * Start : 19-Mar-2018 Active Alendronate Sodium 70 MG Oral Tablet TAKE 1 TABLET Weekly with large glass of water. Sit up for at least 30 minutes after taking pill. * Quantity: 12 Refills: 1 AAKASH TRIMBLE M.D. * Start : 23-Apr-2018 Active Abilify TABS TAKE 1 TABLET DAILY.- PT UNSURE OF STRENGTH * Refills: 0 Active Leflunomide 10 MG Oral Tablet TAKE 1 TABLET EVERY DAY * Quantity: 90 Refills: 0 AAKASH TRIMBLE M.D. * Start : 21-Mar-2018 Active Clindamycin HCl - 300 MG Oral Capsule Take 1 tab by mouth every 8 hours for 10 days with meals. * Quantity: 30 Refills: 0 HELEN N.P., [place] * Start : 15-Oct-2018 Active hydrOXYzine HCl - 10 MG Oral Tablet Take 1-2 tabs by mouth every 8 hours as needed for itch. May cause drowsiness. * Quantity: 30 Refills: 0 HELEN N.P., [place] * Start : 28-Oct-2018 Active Levocetirizine Dihydrochloride 5 MG Oral Tablet TAKE 1 TABLET DAILY IN THE EVENING. * Quantity: 30 Refills: 0 HELEN N.P., [place] * Start : 28-Oct-2018 Active Gabapentin 100 MG Oral Capsule TAKE 1 CAPSULE AT BEDTIME. * Quantity: 30 Refills: 1 DALLAS KEENE M.D. * Start : 13-Nov-2018 Active Allergies and Adverse Reactions Name Dates Details clindamycin (Allergy) Status: Active morphine (Allergy) Status: Active tramadol (Allergy) Status: Active Past Medical History Name Dates Details History of Anxiety and depression (300.00, F41.9) Status: Resolved History of hyperlipidemia (V12.29, Z86.39) Status: Resolved History of hypertension (V12.59, Z86.79) Status: Resolved History of lung cancer (V10.11, Z85.118) Status: Resolved Procedures Procedure Dates Details [Q] FECAL GLOBIN BY IMMUNOCHEM. (MEDICARE) Date: 12-Dec-2018 History of Wrist Surgery Completed History of Hip Surgery Completed History of Hysterectomy Completed History of Lung Lobectomy Completed History of Cholecystectomy Completed History of Hammertoe Operation Left Toe No. ___ Completed History of Tonsillectomy Completed History of Appendectomy Completed History of Primary Repair Of Ruptured Achilles Tendon Completed Immunization Name Dates Details Zoster (Zostavax) on: Mar-2013 Fluzone High-Dose 0.5 ML Intramuscular Suspension Prefilled Syringe Lot #: [id number] on: 02-Jan-2018 Prevnar 13 Intramuscular Suspension Lot #: [id number] on: 18-Apr-2018 Fluzone Quadrivalent 0.5 ML Intramuscular Suspension Lot #: [id number] on: 12-Dec-2018 Family History Name Dates Details Family history of diabetes mellitus (V18.0, Z83.3) Status: Active Name Dates Details Family history of diabetes mellitus (V18.0, Z83.3) Status: Active Family history of malignant neoplasm of colon (V16.0, Z80.0) Status: Active Name Dates Details Family history of diabetes mellitus (V18.0, Z83.3) Status: Active Name Dates Details Family history of osteoarthritis (V17.89, Z82.69) Status: Active Family history of gout (V18.19, Z82.69) Status: Active Family history of malignant neoplasm (V16.9, Z80.9) Status: Active Family history of hypertension (V17.49, Z82.49) Status: Active Name Dates Details Family history of hypertension (V17.49, Z82.49) Status: Active Family history of cardiac disorder (V17.49, Z82.49) Status: Active Social History Name Dates Details - Status: Name Dates Details Never smoker Vital Signs Date Test Result Details [id number] BP Systolic 119 mm[Hg] Status: Comments: Location: LUE; Position: Sitting BP Diastolic 84 mm[Hg] Status: Comments: Location: LUE; Position: Sitting Height 66 in Status: Weight 239.1875 lb Status: Body Mass Index Calculated 38.61 kg/m2 Status: Body Surface Area Calculated 2.16 m2 Status: Temperature 98.8 f Status: Heart Rate 74 /min Status: Respiration Rate 16 /min Status: Physical Findings 0 Status: Comments: Pain Scale :54 BP Systolic 127 mm[Hg] Status: Comments: Location: LUE; Position: Sitting BP Diastolic 82 mm[Hg] Status: Comments: Location: LUE; Position: Sitting Height 66 in Status: Weight 236.25 lb Status: Body Mass Index Calculated 38.13 kg/m2 Status: Body Surface Area Calculated 2.15 m2 Status: Temperature 98.1 f Status: Comments: Method: Temporal Heart Rate 75 /min Status: Respiration Rate 16 /min Status: Physical Findings 0 Status: Comments: Pain Scale Physical Findings 0 Status: Comments: Alcohol Screen - How many times in the past yr have you had 5 (for M) or 4 (for F) or 4 (for all > 65yrs) or more drinks in a day? Results Date Description Value Details :55 [O] PT/INR (in office) PT 30.2 INR 2.5 :36 XRAY Chest 2 views [id number] Chest 2 views SEE NOTES Comments: EXAM: XR CHEST 2 VIEWSDATE: 11/14/2018 9:36 CDTINDICATION: - edema. History of prior pulmonary surgery for lung cancer. Coughwith swelling in the feet.COMPARISON: NoneTECHNIQUE: PA and lateral chest radiographsFINDINGS: Linear scarring is seen in the right upper lobe. There is mildelevation of the right hemidiaphragm. No other lung parenchymal or pleuralabnormalities are seen. Jennifer and pulmonary vasculature are normal.Cardiomediastinal silhouette is normal in appearance. No acute bonyabnormality is identified.IMPRESSION:1. No acute cardiopulmonary abnormality.2. Linear scarring in the right upper lobe.3. Mild elevation of the right hemidiaphragm, most commonly from benigneventration. Subdiaphragmatic or subpulmonic pathology is not excluded. Volumeloss from pulmonary scarring and prior surgery could cause is finding as well.Correlation with prior chest x-rays is recommended.--Read by: Timothy Fowler MDDictated Date/time: 11/14/18 10:36Electronically Signed by: Timothy Fowler MD 11/14/1909:38FINAL REPORT :54 [[facility]] CMP W/EGFR GLUCOSE 90 mg/dl (Normal) Range: 65-99 Comments: Fasting reference interval UREA NITROGEN (BUN) 15 mg/dl (Normal) Range: 7-25 CREATININE 1.04 mg/dl (Above high threshold) Range: 0.60-0.93 Comments: For patients >49 years of age, the reference limitfor Creatinine is approximately 13% higher for peopleidentified as -Serbian. eGFR NON- 52 {ML/MIN/1.7} (Below low threshold) Range: > OR=60 eGFR 60 {ML/MIN/1.7} (Normal) Range: > OR=60 BUN/CREATININE RATIO 14 {CALC} (Normal) Range: 6-22 SODIUM 145 mmol/L (Normal) Range: 135-146 POTASSIUM 3.4 mmol/L (Below low threshold) Range: 3.5-5.3 CHLORIDE 103 mmol/L (Normal) Range: 98-110 CARBON DIOXIDE 33 mmol/L (Above high threshold) Range: 20-32 CALCIUM 8.6 mg/dl (Normal) Range: 8.6-10.4 PROTEIN, TOTAL 6.0 g/dl (Below low threshold) Range: 6.1-8.1 ALBUMIN 3.6 g/dl (Normal) Range: 3.6-5.1 GLOBULIN 2.4 {G/DL__CALC} (Normal) Range: 1.9-3.7 ALBUMIN/GLOBULIN RATIO 1.5 {CALC} (Normal) Range: 1.0-2.5 BILIRUBIN, TOTAL 1.2 mg/dl (Normal) Range: 0.2-1.2 ALKALINE PHSPHATASE 92 u/l (Normal) Range: 33-130 AST 17 u/l (Normal) Range: 10-35 ALT 13 u/l (Normal) Range: 6-29 14-Nov-20188:54 [[facility]] B TYPE NATRIURETIC PEPTIDE (BNP) Comments: REPORT COMMENT:FASTING:YES B TYPE NATRIURETIC PEPTIDE (BNP) 388 pg/ml (Above high threshold) Range: <100 Comments: BNP levels increase with age in the generalpopulation with the highest values seen inindividuals greater than 75 years of age.Reference: J. Am. Trell. Cardiol. 2002; 40:976-982. Plan of Care Name Dates Details Planned Observations Planned Goals not documented Planned Encounters Appointment; AAKASH TRIMBLE M.D. On: 01-Jan-2019 15:00 Appointment; DALLAS KEENE M.D. On: 16-Jan-2019 14:45 Interventions Provided Labs/Procedures/Imaging* [Q] FECAL GLOBIN BY IMMUNOCHEM. (MEDICARE); To Be Done: 12 Dec 2018 Medications/Immunizations Administered* Fluzone Quadrivalent 0.5 ML Intramuscular Suspension; Done: 12 Dec 2018 Plan* Keep appt with cardiology * Ok to try 1/2 tab of metoprolol bid. * Monitor bp at home. * Pt will discuss her metoprolol use when she sees cardiology * F/u prn with me or 1 month Instructions Name Dates Details Instructions not documented Encounters Appointment; DALLAS KEENE M.D. Encounter Diagnosis: Problem not documented On: 02-Jan-2018 11:00 Appointment; DALLAS KEENE M.D. Encounter Diagnosis: Problem not documented On: 10-Feb-2018 14:30 Appointment; DALLAS KEENE M.D. Encounter Diagnosis: Problem not documented On: 07-Mar-2018 10:00 Appointment; AAKASH TRIMBLE M.D. Encounter Diagnosis: Problem not documented On: 19-Mar-2018 8:00 Appointment; DALLAS KEENE M.D. Encounter Diagnosis: Problem not documented On: 18-Apr-2018 9:00 Appointment; AAKASH TRIMBLE M.D. Encounter Diagnosis: Problem not documented On: 23-Apr-2018 10:30 Appointment; DALLAS KEENE M.D. Encounter Diagnosis: Problem not documented On: 16-May-2018 9:30 Appointment; DALLAS KEENE M.D. Encounter Diagnosis: Problem not documented On: 26-Jun-2018 11:00 Appointment; AAKASH TRIMBLE M.D. Encounter Diagnosis: Problem not documented On: 21-Jul-2018 9:30 Appointment; DALLAS KEENE M.D. Encounter Diagnosis: Problem not documented On: 25-Jul-2018 11:00 Appointment; DALLAS KEENE M.D. Encounter Diagnosis: Problem not documented On: 29-Aug-2018 10:45 Appointment; ELISSA CASAS M.D. Encounter Diagnosis: Problem not documented On: 04-Sep-2018 14:00 Appointment; AL LARSEN M.D. Encounter Diagnosis: Problem not documented On: 24-Sep-2018 11:30 Appointment; CALISTA BASS M.D. Encounter Diagnosis: Problem not documented On: 09-Oct-2018 15:15 Appointment; LA CERVANTES NP Encounter Diagnosis: Problem not documented On: 15-Oct-2018 7:30 Appointment; AAKASH TRMIBLE M.D. Encounter Diagnosis: Problem not documented On: 21-Oct-2018 9:30 Appointment; LA CERVANTES NP Encounter Diagnosis: Problem not documented On: 22-Oct-2018 9:30 Appointment; LA CERVANTES NP Encounter Diagnosis: Problem not documented On: 28-Oct-2018 14:30 Appointment; DALLAS KEENE M.D. Encounter Diagnosis: Problem not documented On: 13-Nov-2018 13:45 Appointment; DALLAS KEENE M.D. Encounter Diagnosis: Problem not documented On: 12-Dec-2018 14:30
== END 2019-02-24 21:35 | disposition home or self-care (01) ==
LOC: ER 16:45
DX: S00.83XA Contusion of other part of head, initial encounter (principal); S80.211A Abrasion, right knee, initial encounter; W01.0XXA Fall on same level from slipping, tripping and stumbling without subsequent striking against object, initial encounter; Y92.008 Other place in unspecified non-institutional (private) residence as the place of occurrence of the external cause; I10 Essential (primary) hypertension; I48.91 Unspecified atrial fibrillation; Z85.118 Personal history of other malignant neoplasm of bronchus and lung
CPT/HCPCS: 70450; 71046; 72125; 99283

== ENCOUNTER 2020-08-02 09:52 | Emergency (ER) | payer MEDICARE ==
[~2020-08-02] VITALS: Ht 170.2 cm; Wt 106.6 kg
[2020-08-02] MEDS ORDERED: ONDANSETRON HCL INJ 2MG/ML 2ML 2 MG/ML VIAL IV STA (10:19)
[2020-08-02 10:38] LABS: CLARITY,URINE HAZY (CLEAR); COLOR,URINE YELLOW (YELLOW); KETONES,URINE NEGATIVE (NEGATIVE); LEUKOCYTE ESTERASE ,URINE NEGATIVE (NEGATIVE); NITRITE,URINE NEGATIVE (NEGATIVE); PROTEIN,URINE DIPSTICK 2+ (NEGATIVE); URINE UROBILINOGEN 0.2 mg/dL (0.2 - 1)
[2020-08-02 10:40] LABS: BASOPHILS # (AUTO) 0.1 (0.0-0.1); BASOPHILS % 0.8 % (0.0-1.0); EOSINOPHILS # (AUTO) 0.1 (0.0-0.4); EOSINOPHILS % 1.4 % (0.0-6.0); HEMATOCRIT 37.8 % (34.2-44.1); HEMOGLOBIN 11.9 g/dL (12.0-16.0); LYMPHOCYTES # (AUTO) 0.9 (1.0-3.2); LYMPHOCYTES % 14.7 % (18.0-39.1); MEAN CORPUSCULAR HEMOGLOBIN 28.7 pg (28-32); MEAN CORPUSCULAR HGB CONC 31.5 g/dL (31-35); MEAN CORPUSCULAR VOLUME 91.3 fL (81-99); MONOCYTES # (AUTO) 0.4 (0.2-0.8); MONOCYTES % 6.9 % (4.4-11.3); NEUTROPHILS # (AUTO) 4.8 (2.1-6.9); NEUTROPHILS % 75.1 % (38.7-80.0); PLATELET COUNT 193 x10e3/uL (140-360); RED BLOOD COUNT 4.14 x10e6/uL (3.6-5.1); RED CELL DISTRIBUTION WIDTH 17.2 % (11.7-14.4)
[2020-08-02 10:47] LABS: BACTERIA,URINE RARE /HPF; EPITHELIAL CELLS,URINE MANY /LPF; MUCUS,URINE FEW (RARE); RBC,URINE 0-5 /HPF (0-5)
[2020-08-02 10:56] LABS: ALBUMIN 3.4 g/dL (3.5-5.0); ANION GAP 14.6 mmol/L (8-16); CALCIUM 9.4 mg/dL (8.4-10.2); CREATININE, SERUM 1.17 mg/dL (0.57-1.11); POTASSIUM 3.6 mmol/L (3.5-5.1)
[2020-08-02 11:14] LABS: PROTHROMBIN TIME 23.4 seconds (11.9-14.5)
[2020-08-02] MEDS ORDERED: SODIUM CHLORIDE 0.9% 50ML 50 ML ONE (11:16)
[2020-08-02] MEDS ORDERED: IOPAMIDOL 370 MG/ML 200 ML INFUS..BTL INJ ONE (11:16)
[2020-08-02] MEDS ORDERED: ONDANSETRON ODT4 MG PO (13:36)
== END 2020-08-02 13:37 | disposition home or self-care (01) ==
LOC: ER 10:38
DX: R10.11 Right upper quadrant pain (principal); R63.0 Anorexia; R94.31 Abnormal electrocardiogram [ECG] [EKG]; Z20.822 Contact with and (suspected) exposure to COVID-19
CPT/HCPCS: 36415; 71045; 74177; 80053; 81001; 83880; 84484; 85025; 85610; 93005; 99284; Q9967; U0002